=== PATIENT | female | born 1950 | race Caucasian/White ===

== ENCOUNTER 2021-07-08 10:53 | Outpatient (REF) | payer MEDICARE, SELFPAY ==
--- NOTE | ~2021-07-08 | MM_ITS ---
EXAMINATION: MM SCREENING DIGITAL BREAST TOMOSYNTHESIS, BILATERAL CLINICAL INFORMATION: Screening. Asymptomatic. History ADH 3:00 anterior left breast, post excision 06/22/2017. The lifetime risk of breast cancer based on the Tyrer-Cuzick Model is 19%. COMPARISON: Mammography: 07/02/2020, 03/17/2019, 03/18/2018; outside mammography 04/03/2017 ([facility]); MRI breasts 05/31/2020. TECHNIQUE: Digital breast tomosynthesis is performed in both the craniocaudal and mediolateral oblique views along with computer-aided detection (CAD). Synthesized 2D images are generated from the tomosynthesis. Additional exaggerated left CC view is provided. FINDINGS: There are scattered areas of fibroglandular density (ACR BI-RADS breast composition Category b). There are post lumpectomy changes again noted left breast anterior outer quadrant. Neither breast shows interval mass or architectural abnormality. Again, there are scattered bilateral round and punctate calcifications. No significant changes. There is a dermal lesion overlying the lower left breast. MM/MM tomosynthesis screening BI IMPRESSION: No mammographic evidence of malignancy. Stable post lumpectomy changes left breast. ASSESSMENT: BI-RADS 2: Benign RECOMMENDATION: Routine annual mammography screening. This patient's information was entered into a reminder system with a target due date for their next mammogram.
== END 2021-07-08 10:54 | disposition home or self-care (01) ==
LOC: HO.MAMMO 10:53
PROVIDERS: PCP Internal Medicine; Visit Provider Internal Medicine
DX: Z12.31 Encounter for screening mammogram for malignant neoplasm of breast (principal)
CPT/HCPCS: 77063; 77067

== ENCOUNTER → 2021-08-06 08:32 | Outpatient (BNVA) | payer MEDICARE, SELFPAY | PROVIDERS: PCP Internal Medicine; Visit Provider Surgery | DX: N60.92 Unspecified benign mammary dysplasia of left breast (principal) | CPT/HCPCS: 99212 ==

== ENCOUNTER 2022-07-21 08:35 | Outpatient (REF) | payer MEDICARE, SELFPAY ==
--- NOTE | ~2022-07-21 | MM_ITS ---
EXAMINATION: MM SCREENING DIGITAL BREAST TOMOSYNTHESIS, BILATERAL CLINICAL INFORMATION: Screening. Asymptomatic. The lifetime risk of breast cancer based on the Tyrer-Cuzick Model is 18%. COMPARISON: Mammography: 07/08/2021, 07/02/2020, 03/17/2019 TECHNIQUE: Digital breast tomosynthesis is performed in both the craniocaudal and mediolateral oblique views along with computer-aided detection (CAD). Synthesized 2D images are generated from the tomosynthesis. FINDINGS: There are scattered areas of fibroglandular density (ACR BI-RADS breast composition Category b). There are no significant masses, abnormal calcifications, or other abnormalities. . Parenchymal pattern is similar to prior exam. There are scattered benign round and some coarse calcifications. The axilla are unremarkable. There is a dermal lesion again seen overlying the lower left breast. MM/MM tomosynthesis screening BI IMPRESSION: No mammographic evidence of malignancy. ASSESSMENT: BI-RADS 2: Benign RECOMMENDATION: Routine annual mammography screening. This patient's information was entered into a reminder system with a target due date for their next mammogram.
== END 2022-07-21 08:36 | disposition home or self-care (01) ==
LOC: HO.MAMMO 08:35
PROVIDERS: Absent Provider Obstetrics & Gynecology Gynecology; PCP Internal Medicine; Visit Provider Internal Medicine
DX: Z12.31 Encounter for screening mammogram for malignant neoplasm of breast (principal)
CPT/HCPCS: 77063; 77067

== ENCOUNTER → 2022-07-29 08:59 | Outpatient (BNVA) | payer MEDICARE, SELFPAY | PROVIDERS: PCP Internal Medicine; Visit Provider Surgery | DX: N60.92 Unspecified benign mammary dysplasia of left breast (principal) | CPT/HCPCS: 99212 ==

== ENCOUNTER 2023-07-28 08:43 | Outpatient (REF) | payer MEDICARE, SELFPAY ==
--- NOTE | ~2023-07-28 | MM_ITS ---
EXAMINATION: MM SCREENING DIGITAL BREAST TOMOSYNTHESIS, BILATERAL CLINICAL INFORMATION: Screening. Asymptomatic. The patient has a history of left breast excision for atypical ductal head lesion. COMPARISON: Mammography: This study is compared with prior exams dating back to 2019. TECHNIQUE: Digital breast tomosynthesis is performed in both the craniocaudal and mediolateral oblique views along with computer-aided detection (CAD). Synthesized 2D images are generated from the tomosynthesis. FINDINGS: There are scattered areas of fibroglandular density (ACR BI-RADS breast composition Category b). There are no significant masses, abnormal calcifications, or other abnormalities. There are postsurgical changes in the lateral aspect of the left breast from prior excision of atypical ductal hyperplasia. MM/MM tomosynthesis screening BI IMPRESSION: No mammographic evidence of malignancy. ASSESSMENT: BI-RADS BI-RADS 2 - Benign Findings RECOMMENDATION: Routine annual mammography screening. 1 year F/U This examination should not preclude the clinical evaluation of a suspicious palpable abnormality. This patient's information was entered into a reminder system with a target due date for their next mammogram.
== END 2023-07-28 08:44 | disposition home or self-care (01) ==
LOC: HO.MAMMO 08:43
PROVIDERS: PCP Internal Medicine; Visit Provider Internal Medicine
DX: Z12.31 Encounter for screening mammogram for malignant neoplasm of breast (principal)
CPT/HCPCS: 77063; 77067

== ENCOUNTER → 2023-07-28 08:45 | Outpatient (BNV) | payer MEDICARE, SELFPAY | PROVIDERS: PCP Internal Medicine; Visit Provider Radiology Diagnostic Radiology | DX: Z12.31 Encounter for screening mammogram for malignant neoplasm of breast (principal) | CPT/HCPCS: 77063; 77067 ==

== ENCOUNTER 2023-08-04 08:49 | Outpatient (AMB) | payer MEDICARE, SELFPAY ==
--- NOTE | 2023-08-04 08:51 | MHC.OFFVIS ---
Intake Vital Signs 08/04/23 09:05 Height 5 ft 3.5 in Weight 181 lb BMI 31.6 BP 130/70 Blood Pressure Location Lt brachial Position Sitting Intake Visit Reasons: Yearly Breast Exam Intake Note: Patient is seen in office for yearly breast exam. Patient c/o: denies any concerns regarding the breast Deputy Sheriff Lieutenant Required: No Certified Alcohol And Drug Counselor: Certified Alcohol And Drug Counselor Present Accompanied by: Spouse Allergies sulfamethoxazole [From BACTRIM] Allergy (Unknown, Unverified 08/04/23 09:02) RASH,COUGH trimethoprim [From BACTRIM] Allergy (Unknown, Unverified 08/04/23 09:02) RASH,COUGH SULFA Allergy (Unknown, Uncoded 08/04/23 09:02) hives HPI HPI Comments History of Present Illness Details 73 year old female patient of Kayli Connolly and previous patient of Dr. Gutierrez presenting for a follow up breast examination. She was diagnosed with a left breast atypical ductal hyperplasia in the 1 o'clock position in 2016 and subsequently underwent left needle localization biopsy which confirmed atypical ductal hyperplasia. Patient had a 40% lifetime risk of breast cancer. She was placed in the high risk breast cancer protocol for which twice yearly breast examinations, yearly mammograms followed in 6 months with MRI of the breast was recommended. Since her last visit, she denies any new breast symptoms or new palpable lumps on self examination. A breast MRI performed on 06/04/2020 revealed benign changes in both breasts (BI-RADS 2). This study was delayed due to the COVID-19 pandemic. Mammogram of 07/28/2023 revealed no mammographic evidence of malignancy (BI-RADS 2). She returns for a 1 year follow-up examination. She denies any new changes in the breast, and new palpable mass, skin changes or other suspicious findings. She is interested in repeating the MRI when she returns in March 2024. Reports her brother from cardiac disease while playing basketball. Her was diagnosed with prostate cancer metastatic to the spine. He underwent radiation to the spine and tolerated this well. She reports undergoing a right knee total knee replacement on 07/27/2022. This subsequently got infected and required 2 additional surgeries and a prolonged course of antibiotics. She is nearly finished with her physical therapy and generally feels much improved. [facility] Surgical History History of total right knee replacement (TKR) (06/25/22) History of total right knee replacement History of cataract surgery (07/09/20) History of lumpectomy of left breast (06/22/17) History of left breast biopsy History of left knee replacement (2017) Family History Maternal Grandfather Leukemia, Onset Age: 85 Paternal Aunt Breast cancer, Onset Age: 65 Maternal Uncle Lung cancer, Onset Age: 54 Family/Other Breast cancer Social History Alcohol intake: current Alcohol intake frequency: holidays/special occasions only Patient Tobacco Use Status: Never used Tobacco Review of Systems Const All systems reviewed & are unremarkable except as noted in HPI and below Denies anorexia, Denies chills, Denies fever(s) and Denies night sweats Card Denies chest pain, Denies rapid heart rate, Denies irregular heart rhythm and Denies dyspnea Resp Denies cough, Denies dyspnea and Denies stridor GI Denies bloating, Denies constipation, Denies GI cramping and Denies diarrhea Denies nipple discharge Musc Details: Right knee replacement Reports no additional complaints Skin/Breast Denies breast swelling, Denies breast skin changes, Denies breast pain, Denies breast mass, Denies change in breast shape and Denies nipple discharge Physical Exam Vital Signs: Last Vital Signs BP 130/70 08/04/23 09:05 BMI result Body Mass Index 31.6 Const General: cooperative, no acute distress and well developed Nutritional Appearance: well nourished Orientation/consciousness: patient oriented x3 Limitations: no limitations Neck Neck: Yes no lymphadenopathy, Yes trachea midline and Yes supple Chest Other: Left breast: No skin change, no nipple retraction, no nipple discharge, no palpable mass, no enlarged lymph nodes. Right breast: No skin change, no nipple retraction, no nipple discharge, no palpable mass, no enlarged lymph nodes Resp Effort & Inspection: normal respiratory effort, no cough and no respiratory distress Auscultation: no rhonchi GI Inspection: Yes normal to inspection Skin Other: Warm, dry, no rashes Neuro General: patient oriented x3 Extrem General: Yes no clubbing, cyanosis or edema Assessment & Plan Assessment & Plan (1) Atypical ductal hyperplasia of left breast: Code(s): N60.92 - Unspecified benign mammary dysplasia of left breast Plan: Patient returns for follow-up yearly breast examination following excision of an atypical ductal hyperplasia of the left breast. She denies any new breast symptoms on either side. Her most recent mammogram of 07/28/2023 revealed no mammographic evidence of malignancy (BI-RADS 2). Examination today revealed no suspicious findings in either side. She should continue self examination and return in 1 year for follow-up examination. A breast MRI is been ordered for March 2024. She is welcome to call for any concerns. Orders: Orders MR breast BI wo/w con 03/09/24 N60.92 - Unspecified benign mammary dysplasia of left breast Coding Level of Care Code Est Pt Level 3 (71873) Diagnoses Atypical ductal hyperplasia of left breast N60.92
[2023-08-04 09:05] VITALS: BP 130/70; BMI 31.6
== END 2023-08-04 09:22 | disposition home or self-care (01) ==
PROVIDERS: PCP Internal Medicine; Visit Provider Surgery
DX: N60.92 Unspecified benign mammary dysplasia of left breast (principal)
CPT/HCPCS: 99213

== ENCOUNTER → 2023-08-04 08:49 | Outpatient (BNVA) | payer MEDICARE, SELFPAY | PROVIDERS: PCP Internal Medicine; Visit Provider Surgery | DX: N60.92 Unspecified benign mammary dysplasia of left breast (principal) | CPT/HCPCS: 99212 ==

== ENCOUNTER 2024-03-29 14:00 | Outpatient (REF) | payer MEDICARE, SELFPAY ==
--- NOTE | ~2024-03-29 | MR_ITS ---
EXAMINATION: MR BREAST WITHOUT AND WITH CONTRAST, BILATERAL CLINICAL INFORMATION: High-risk screening. History of left ADH status post excision. COMPARISON: 05/31/2020, 04/07/2019 TECHNIQUE: Imaging was performed with a dedicated breast coil. Prior to the administration of contrast, bilateral axial T1 and bilateral axial T2 weighted sequences were obtained. After the uneventful administration of?8.5 mL of Gadavist, dynamic contrast-enhanced VIBRANT series through the breasts in the axial plane were performed. Subtracted images were performed and reviewed. A delayed sagittal sequence through both breasts was acquired. Additionally, CAD post-processing, including maximum intensity projections, 3-D reconstructions and kinetic analysis, were performed an independent workstation and reviewed by the interpreting radiologist is a portion of this exam. FINDINGS: There are scattered areas of fibroglandular density. The patient's fibroglandular tissue demonstrates mild background enhancement. LEFT BREAST: Stable linear non mass enhancement in the lateral left breast measuring 6 mm (image 64/101 series 100), given greater than 2 year stability this is favored benign. Stable postsurgical changes in the lateral left breast. No new suspicious masslike or non-masslike enhancement. No abnormal skin thickening or nipple retraction. Review of the T2 weighted images and kinetic images reveals no additional findings. RIGHT BREAST: Stable enhancing focus measuring 5 mm in the right breast at 12:00 2.4 cm from the nipple (image 71/101 series 100), given greater than 2 year stability this is favored benign. No new suspicious masslike or non-masslike enhancement. No abnormal skin thickening or nipple retraction. Review of the T2 weighted images and kinetic images reveals no additional findings. There is no suspicious internal mammary chain or axillary adenopathy. Limited views of the chest and abdomen are unremarkable. MR/MR breast BI wo/w con IMPRESSION: No MR specific evidence of malignancy. ASSESSMENT: LEFT BREAST: BI-RADS 2-benign findings RIGHT BREAST: BI-RADS 2-benign findings RECOMMENDATIONS: Continue annual screening mammography. Annual screening MRI can be considered if risk factors indicate.
[2024-03-29] MEDS: gadobutroL 10 ML VIAL IVPUSH (15:42)
== END 2024-03-29 14:01 | disposition home or self-care (01) ==
LOC: HO.MRI 14:00
PROVIDERS: PCP Internal Medicine; Visit Provider Surgery
DX: N60.92 Unspecified benign mammary dysplasia of left breast (principal)
CPT/HCPCS: 77049; A9585

== ENCOUNTER 2024-09-23 08:59 | Outpatient (REF) | payer MEDICARE, SELFPAY ==
--- NOTE | ~2024-09-23 | MM_ITS ---
EXAMINATION: MM SCREENING DIGITAL BREAST TOMOSYNTHESIS, BILATERAL CLINICAL INFORMATION: Screening. Asymptomatic. COMPARISON: Mammography: Comparison is made with available priors TECHNIQUE: Digital breast mammography with tomosynthesis is performed in both the craniocaudal and mediolateral oblique views along with computer-aided detection (CAD). FINDINGS: There are scattered areas of fibroglandular density (ACR BI-RADS breast composition Category b). Left excisional biopsy. There are no significant masses, abnormal calcifications, or other abnormalities. MM/MM tomosynthesis screening BI IMPRESSION: No mammographic evidence of malignancy. ASSESSMENT: BI-RADS BI-RADS 2 - Benign Findings RECOMMENDATION: Routine annual mammography screening. 1 year F/U This examination should not preclude the clinical evaluation of a suspicious palpable abnormality. This patient's information was entered into a reminder system with a target due date for their next mammogram. Electronically signed by: Luci Manning DO 09/29/2024 06:06 PM [facility]
== END 2024-09-23 09:00 | disposition home or self-care (01) ==
LOC: HO.MAMMO 08:59
PROVIDERS: PCP Internal Medicine; Visit Provider Surgery
DX: Z12.31 Encounter for screening mammogram for malignant neoplasm of breast (principal)
CPT/HCPCS: 77063; 77067

== ENCOUNTER → 2024-09-23 09:15 | Outpatient (BNV) | payer MEDICARE, SELFPAY | PROVIDERS: PCP Internal Medicine; Visit Provider Internal Medicine | DX: Z12.31 Encounter for screening mammogram for malignant neoplasm of breast (principal) | CPT/HCPCS: 77063; 77067 ==

== ENCOUNTER 2024-09-30 08:53 | Outpatient (AMB) | payer MEDICARE, SELFPAY ==
--- NOTE | 2024-09-30 09:05 | MHC.OFFVIS ---
Vital Signs 09/30/24 09:16 Height 5 ft 3.5 in Weight 187 lb 6 oz BMI 32.7 BP 137/64 Blood Pressure Location Lt brachial Position Sitting Pulse 75 Intake Visit Reasons: Yearly breast exam Intake Note: Patient is seen in office for yearly breast exam. Pt c/o: denies any concerns regarding the breast MRI: 03/29/24 mm: 09/23/24 Glass Washer And Carrier Required: No Sock Lining Stitcher: Sock Lining Stitcher Present Accompanied by: Family/Other Allergies sulfamethoxazole [From BACTRIM] Allergy (Unknown, Unverified 09/30/24 09:17) RASH,COUGH trimethoprim [From BACTRIM] Allergy (Unknown, Unverified 09/30/24 09:17) RASH,COUGH SULFA Allergy (Unknown, Uncoded 09/30/24 09:17) hives Medication List - Last Reconciled 09/30/24 by Blayne Gudino MD amlodipine mg PO aspirin (Adult Low Dose Aspirin) 81 mg PO DAILY atorvastatin 20 mg PO DAILY cholecalciferol (vitamin D3) 50 mcg PO DAILY hydrochlorothiazide 12.5 mg PO DAILY losartan 50 mg PO DAILY magnesium 250 mg PO DAILY HPI Comments Details: 74 year old female patient of Kayli Connolly and previous patient of Dr. Gutierrez presenting for a follow up breast examination. She was diagnosed with a left breast atypical ductal hyperplasia in the 1 o'clock position in 2016 and subsequently underwent left needle localization biopsy which confirmed atypical ductal hyperplasia. Patient had a 40% lifetime risk of breast cancer. She was placed in the high risk breast cancer protocol for which twice yearly breast examinations, yearly mammograms followed in 6 months with MRI of the breast was recommended. Since her last visit, she denies any new breast symptoms or new palpable lumps on self examination. breast MRI performed on 03/29/2024 revealed no MR specific evidence of malignancy (BI-RADS 2 bilaterally). Bilateral mammogram performed on 09/23/2024 revealed no mammographic evidence of malignancy (BI-RADS 2). Reports her brother from cardiac disease while playing basketball. Her was diagnosed with prostate cancer metastatic to the spine. He underwent radiation to the spine and tolerated this well. She reports undergoing a right knee total knee replacement on 07/27/2022. This subsequently got infected and required 2 additional surgeries and a prolonged course of antibiotics. [facility] Surgical History History of total right knee replacement (TKR) (06/25/22) History of total right knee replacement History of cataract surgery (07/09/20) History of lumpectomy of left breast (06/22/17) History of left breast biopsy History of left knee replacement (2017) Family History Maternal Grandfather Leukemia, Onset Age: 85 Paternal Aunt Breast cancer, Onset Age: 65 Maternal Uncle Lung cancer, Onset Age: 54 Family/Other Breast cancer Social History Alcohol intake: current Alcohol intake frequency: holidays/special occasions only Patient Tobacco Use Status: Never used Tobacco Review of Systems Const All systems reviewed & are unremarkable except as noted in HPI and below Denies anorexia, Denies chills, Denies fever(s) and Denies night sweats Card Denies chest pain, Denies rapid heart rate, Denies irregular heart rhythm and Denies dyspnea Resp Denies cough, Denies dyspnea and Denies stridor GI Denies bloating, Denies constipation, Denies GI cramping and Denies diarrhea Denies nipple discharge Musc Details: Right knee replacement Reports no additional complaints Skin/Breast Denies breast swelling, Denies breast skin changes, Denies breast pain, Denies breast mass, Denies change in breast shape and Denies nipple discharge Physical Exam Vital Signs: Last Vital Signs Pulse 75 09/30/24 09:16 BP 137/64 09/30/24 09:16 BMI result Body Mass Index 32.7 Const General: cooperative, no acute distress and well developed Nutritional Appearance: well nourished Orientation/consciousness: patient oriented x3 Limitations: no limitations Chest Other: Left breast: No skin change, no nipple retraction, no nipple discharge, no palpable mass, no enlarged lymph nodes. Right breast: No skin change, no nipple retraction, no nipple discharge, no palpable mass, no enlarged lymph nodes Resp Effort & Inspection: normal respiratory effort, no cough and no respiratory distress GI Inspection: Yes normal to inspection Skin Other: Warm, dry, no rashes Neuro General: patient oriented x3 Extrem General: Yes no clubbing, cyanosis or edema Assessment & Plan Assessment & Plan (1) Atypical ductal hyperplasia of left breast: Code(s): N60.92 - Unspecified benign mammary dysplasia of left breast Category: Medical Plan: Patient returns for follow-up yearly breast examination following excision of an atypical ductal hyperplasia of the left breast. She denies any new breast symptoms on either side. Her most recent mammogram of 09/23/2024 revealed no mammographic evidence of malignancy (BI-RADS 2). Breast MRI of 03/29/2024 revealed no MR specific evidence of malignancy ( BI-RADS 2 bilaterally ). Examination today revealed no suspicious findings in either side. She should continue self examination and return in 1 year for follow-up examination. She is welcome to call for any concerns. Coding Level of Care Code Est Pt Level 3 (24266) Diagnoses Atypical ductal hyperplasia of left breast N60.92
[2024-09-30 09:16] VITALS: BP 137/64; PULSE 75; BMI 32.7
== END 2024-09-30 09:40 | disposition home or self-care (01) ==
PROVIDERS: PCP Internal Medicine; Visit Provider Surgery
DX: N60.92 Unspecified benign mammary dysplasia of left breast (principal)
CPT/HCPCS: 99213

== ENCOUNTER → 2024-09-30 08:53 | Outpatient (BNVA) | payer MEDICARE, SELFPAY | PROVIDERS: PCP Internal Medicine; Visit Provider Surgery | DX: N60.92 Unspecified benign mammary dysplasia of left breast (principal) | CPT/HCPCS: 99212 ==

== ENCOUNTER 2025-09-29 08:33 | Outpatient (REF) | payer MEDICARE, SELFPAY ==
--- NOTE | ~2025-09-29 | MM_ITS ---
EXAMINATION: MM SCREENING DIGITAL BREAST TOMOSYNTHESIS, BILATERAL CLINICAL INFORMATION: Screening. Asymptomatic. COMPARISON: Mammography: Comparison is made with available priors TECHNIQUE: Digital breast mammography with tomosynthesis is performed in both the craniocaudal and mediolateral oblique views along with computer-aided detection (CAD). FINDINGS: There are scattered areas of fibroglandular density. Left excisional biopsy. There are no significant masses, abnormal calcifications, or other abnormalities. MM/MM tomosynthesis screening BI IMPRESSION: No mammographic evidence of malignancy. ASSESSMENT: BI-RADS Category 2: Benign RECOMMENDATION: Routine annual mammography screening. 1 year F/U This examination should not preclude the clinical evaluation of a suspicious palpable abnormality. This patient's information was entered into a reminder system with a target due date for their next mammogram. Electronically signed by: Luci Manning DO 10/02/2025 05:42 PM [facility]
--- OUTSIDE RECORDS SUMMARY | 2025-09-29 08:37 | XMS_ITS | Clinical Summary ---
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 3 Active amLODIPine (NORVASC) 5 mg tablet Take 1.5 tablets (7.5 mg total) by mouth 1 (one) time each day. Active amoxicillin (AMOXIL) 500 mg capsule Take 4 capsules (2,000 mg total) by mouth once as needed for up to 1 dose. Take 1 hour prior to dental procedures. 3 Active aspirin 81 mg EC tablet Take 1 tablet (81 mg total) by mouth 2 (two) times a day after meals. 3 Active atorvastatin (LIPITOR) 10 mg tablet Take 1 tablet (10 mg total) by mouth every evening. Active fluocinolone 0.01 % cream Apply 1 application topically every 3 (three) days. Active hydroCHLOROthia zide (HYDRODIURIL) 25 mg tablet Take 1 tablet (25 mg total) by mouth 1 (one) time each day. Active losartan (COZAAR) 100 mg tablet Take 1 tablet (100 mg total) by mouth every evening. 1 Active MAGNESIUM ORAL Take 1 tablet by mouth every evening. Active meloxicam (MOBIC) 15 mg tablet Take 1 tablet (15 mg total) by mouth 1 (one) time each day. 3 Active methocarbamoL (ROBAXIN) 750 mg tablet Take 1 tablet (750 mg total) by mouth every 6 (six) hours as needed (spasm). 3 Active DAILY MULTI-VITAMIN ORAL Take by mouth every evening. Active nystatin (MYCOSTATIN) 100,000 unit/mL suspension Take 5 mL (500,000 Units total) by mouth 3 (three) times a day. 3 Active ondansetron (ZOFRAN) 4 mg tablet Take 1 tablet (4 mg total) by mouth daily as needed for nausea. 3 Active oxyCODONE (ROXICODONE) 5 mg immediate release tablet Take 1 tablet (5 mg total) by mouth every 4 (four) hours as needed. 3 Active psyllium (Daily Fiber, psyllium-aspart ,) 3.4 gram packet Take 1 packet by mouth 1 (one) time each day. Active senna-docusate (PERICOLACE) 8.6-50 mg per tablet Take 1 tablet by mouth 2 (two) times a day. 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 Acute pain of right knee 09/29/2022 Prediabetes 04/08/2017 Obesity (BMI 30-39.9) 04/08/2017 Encounters Date Type Department Care Team Description 08/10/2025 Telephone [facility] Cardiology [facility] [address] [place] [address] Del Blackburn MD 07/20/2025 Telephone [facility] Cardiology [facility] [address] [place] [address] Fernie Ribeiro MD from Last 3 Months Immunizations Immunization Administration Dates Next Due [employer] SARS-CoV-2 COVID-19, mRNA, LNP-S, preservative free 08/08/2021,01/28/2021,01/03/2021 Surgical History Surgery Date Site/Laterality Comments GUM SURGERY PROCEDURE:GUM SURGERY COLONOSCOPY PROCEDURE:COLONOSCOPY JOINT REPLACEMENT PROCEDURE:JOINT REPLACEMENT TOTAL KNEE ARTHROPLASTY 04/23/2017 Left PROCEDURE:TOTAL KNEE ARTHROPLASTY;COMMENT:Procedu re: REPLACEMENT TOTAL KNEE; Surgeon: Marin Soto MD; Location: [facility]; Service: Orthopedics; Laterality: Left; BREAST LUMPECTOMY 06/2017 Left PROCEDURE:BREAST LUMPECTOMY CATARACT EXTRACTION W/ INTRAOCULAR LENS IMPLANT 2019 Left PROCEDURE:CATARACT EXTRACTION W/ INTRAOCULAR LENS IMPLANT CATARACT EXTRACTION W/ INTRAOCULAR LENS IMPLANT 2019 Right PROCEDURE:CATARACT EXTRACTION W/ INTRAOCULAR LENS IMPLANT TOTAL KNEE ARTHROPLASTY 06/26/2022 Right PROCEDURE:TOTAL KNEE ARTHROPLASTY;COMMENT:Procedu re: REPLACEMENT TOTAL KNEE; Surgeon: Marin Soto MD; Location: [facility]; Service: Orthopedics; Laterality: Right; REMOVAL PROSTHESIS TOTAL KNE E W/ OR W/O INSERTION SPACER 10/21/2022 Right PROCEDURE:REMOVAL PROSTHESIS TOTAL KNEE W/ OR W/O INSERTION SPACER;COMMENT:Procedure: REMOVE TOTAL KNEE PROSTHESIS; Surgeon: Inder Cordero MD; Location: [facility]; Service: Orthopedic Trauma; Laterality: Right; KNEE ARTHRODESIS 10/21/2022 Right PROCEDURE:KNEE ARTHRODESIS;COMMENT:Procedur e: ARTHRODESIS KNEE; Surgeon: Inder Cordero MD; Location: [facility]); Service: Orthopedic Trauma; Laterality: Right; PERIPHERALLY INSERTED CENTRA L CATHETER INSERTION 10/22/2022 PROCEDURE:PERIPHERALLY INSERTED CENTRAL CATHETER INSERTION KNEE ARTHROPLASTY 12/16/2022 Right PROCEDURE:REVISION TOTAL KNEE ARTHROPLASTY;COMMENT:Procedu re: REVISION TOTAL KNEE; Surgeon: Inder Cordero MD; Location: [facility]); Service: Orthopedics; Laterality: Right; Medical History Medical History Date Comments Osteoarthritis DX:Osteoarthriti s Lichen planus DX:Lichen planus ;COMMENT:not active Gingivitis DX:Gingivitis Pneumonia DX:Pneumonia Hypertension DX:Hypertension Hyperlipidemia DX:Hyperlipidemi a Migraine headache DX:Migraine he adache;COMMENT:Hx last 40 yrs ago Prediabetes DX:Prediabetes Obesity (BMI 35.0-39.9 witho ut comorbidity) DX:Obesity (BMI 35.0-39.9 wi thout comorbidity) Lab test positive for detect ion of COVID-19 virus 05/02/2022 DX:Lab test positive for det ection of COVID-19 virus;COMMENT:Pt states Mild case Cataract DX:Cataract;COMM ENT:2020 surgery bilaterally Visual impairment DX:Visual impairment;COMMENT:reading glasses History of transfusion 10/25/2022 DX:Histor y of transfusion Anemia DX:Anemia Staph infection DX:Staph infecti on;COMMENT:R-TKA 10/2022. On IV ABX Family History Medical History Relation Name Comments Heart disease Brother Heart attack, CABG 4 Hyperlipidemia Brother Heart disease Father 75 Arthritis Mother Hyperlipidemia Mother Hypertension Mother No Known Problems Sister Relation Name Status Comments Brother (Age 67) [place] Father 75 Heart attack Mother Alive Sister Alive Social History Tobacco Use Types Packs/Day Years Used Date Smoking Tobacco: Never Smokeless Tobacco: Never Alcohol Use Standard Drinks/Week Comments Yes 0 (1 standard drink = 0.6 oz pur e alcohol) Comments Unknown Sex and Gender Information Value Date Recorded Sex Assigned at Not on file Legal Sex Female 5:13 AM EST Gender Identity Not on file Sexual Orientation Not on file Obstetrics History Last Filed Vital Signs Vital Sign Reading Time Taken Comments Blood Pressure 138/65 03/14/2025 10:07 AM EDT Pulse 67 03/14/2025 10:07 AM EDT Temperature 36.7 C (98 F) 03/14/2025 10:07 AM EDT Respiratory Rate - - Oxygen Saturation - - Inhaled Oxygen Concentration - - Weight 78.9 kg (174 lb) 03/14/2025 10:07 AM EDT Height 162.6 cm (5' 4 ) 03/14/2025 10:07 AM EDT Body Mass Index 29.87 03/14/2025 10:07 AM EDT Plan of Treatment Upcoming Encounters Date Type Department Care Team (Late st Contact Info) Description 03/13/2026 11:00 AM EDT Office Visit Orthopedic Oncology - [place] [address] [place] [id number] Jase Rivera MD [address] [place], [place] [id number] Health Maintenance Due Date Last Done Comments Breast Cancer Screening 1950 Colorectal Cancer Screening: Colonoscopy 1950 Cholesterol Screening (Lipid Panel) 10/12/2022 Falls Risk Assessment 10/12/2022 Hepatitis C Screening 10/12/2022 Medicare Annual Wellness Visit 10/12/2022 Social Influencers of Health Screening 10/12/2022 Depression Screening 11/09/2024 COVID-19 Vaccine ( season) 2025 10/21/2024, 06/01/2024, 08/04/2023, Additional history exists Influenza Vaccine (#1) 2025 , 09/04/2022, 07/23/2021, Additional history exists Hypertension/CHF/CAD Annual BMP Blood Test 10/28/2025 10/28/2024, 12/18/2022, 12/18/2022, Additional history exists DTaP,Tdap,and Td Vaccines (2 - Td or Tdap) 10/05/2028 10/05/2018 Osteoporosis Screening (Bone Density Screening) 06/28/2035 06/28/2025, 04/21/2022, 04/19/2020, Additional history exists Zoster Vaccines Completed 05/17/2021, 10/10, 08/22/2017, Additional history exists RSV Immunization Adult Patients Completed 10/09/2023 Pneumococcal Vaccine: 50+ Years Completed 06/01/2024, 03/28/2020, 10/14/2016 HIB Vaccines Aged Out No longer eligi ble based on patient's age to complete this topic HPV Vaccines Aged Out No longer eligi ble based on patient's age to complete this topic Hepatitis A Vaccines Aged Out No long er eligible based on patient's age to complete this topic Hepatitis B Vaccines Aged Out No long er eligible based on patient's age to complete this topic IPV Vaccines Aged Out No longer eligi ble based on patient's age to complete this topic MMR Vaccines Aged Out No longer eligi ble based on patient's age to complete this topic Meningococcal ACWY Vaccine Aged Out N o longer eligible based on patient's age to complete this topic Meningococcal B Vaccine Aged Out No l onger eligible based on patient's age to complete this topic RSV Immunization Patients Under 20 months Aged Out No longer eligible based on patient's age to complete this topic Varicella Vaccines Aged Out No longer eligible based on patient's age to complete this topic Medical Devices Implanted Type Area Geopolitics Teacher Device Identifier Shelf Expiration Date Model / Serial / Lot Stimulan Rapid Cure Implanted:Qty : 1 on 10/21/2022 Joints Right: Knee [id number] 05/08/2025 / / [id number] [employer] Simplex Radiopq Stry-Howm 7836-8-190-11 409 Implanted:Qty : 1 on 10/21/2022 Right: Knee [employer] [id number] 10/08/2023 6190-11-09 0 / / [id number] Cement Bone Surg Simplex Radiopq Stry-Howm 9074-7-962-11 409 Implanted:Qty : 1 on 10/21/2022 Right: Knee [employer] [id number] 10/08/2023 6190-11-09 0 / / [id number] Cement Bone Surg Simplex Radiopq Stry-Howm 8618-9-689-11 409 Implanted:Qty : 1 on 10/21/2022 Right: Knee [employer] [id number] 10/08/2023 6190-11-09 0 / / [id number] Cement Bone Surg Simplex Radiopq Stry-Howm 1202-6-444-11 409 Implanted:Qty : 1 on 10/21/2022 Right: Knee [employer] [id number] 10/08/2023 6190-11-09 0 / / [id number] Cement Bone Surg Simplex Radiopq Stry-Howm 2089-5-533-11 409 Implanted:Qty : 1 on 10/21/2022 Right: Knee [employer] [id number] 10/08/2023 6190-11-09 0 / / [id number] Knee Fem Ts Sz4 Rt Stry-Howm 1584-E-026-53 6008 Implanted:Qty : 1 on 12/16/2022 by Inder Cordero MD Right: Knee [employer] [id number] 07/28/2026 5512-F-40 2 / / [id number] Knee Fem Dist Aug Sz4 10mm Rt Stry-Howm 9318-Y-560-55 0809 Implanted:Qty : 1 on 12/16/2022 by Inder Cordero MD Right: Knee [employer] [id number] 09/23/2025 5541-A-40 2 / / [id number] Knee Aug Fem Dist Rt 5mm Sz4 Stry-Howm 2522-U-614-53 4021 Implanted:Qty : 1 on 12/16/2022 by Inder Cordero MD Right: Knee [employer] [id number] 04/07/2023 5540-A-40 2 / / [id number] Knee Aug Fem Post 5mm Sz4 Stry-Howm 8264-K-290-53 4020 Implanted:Qty : 1 on 12/16/2022 by Inder Cordero MD Right: Knee [employer] [id number] 06/03/2026 5543-A-40 0 / / [id number] Knee Aug Fem Post 5mm Sz4 Stry-Howm 0018-R-408-53 4020 Implanted:Qty : 1 on 12/16/2022 by Inder Cordero MD Right: Knee [employer] [id number] 05/20/2026 5543-A-40 0 / / [id number] Knee Stem Cmnt Triathln 90x767 Stry-How 9015-X-382-20 0861 Implanted:Qty : 1 on 12/16/2022 by Inder Cordero MD Right: Knee [employer] [id number] 06/26/2024 5565-S-01 7 / / [id number] Knee Sys Total Ofst 2mm Stry-How 7677-S-927-56 5395 Implanted:Qty : 1 on 12/16/2022 by Inder Cordero MD Right: Knee [employer] [id number] 03/26/2024 5570-S-02 0 / / [id number] Knee Adapt Stab Offset 4mm Stry-Howm 0768-A-930-53 5890 Implanted:Qty : 1 on 12/16/2022 by Inder Cordero MD Right: Knee [employer] [id number] 10/21/2025 5570-S-04 0 / / [id number] Knee Tib Baseplate Sz 4 Rt-Lt Stry-Howm 5840-Z-822-54 5913 Implanted:Qty : 1 on 12/16/2022 by Inder Cordero MD Right: Knee [employer] [id number] 04/03/2027 5521-B-40 0 / / [id number] Knee Tib Aug Rm Ll Sz4 10mm Stry-Howm 2092-O-790-54 9114 Implanted:Qty : 1 on 12/16/2022 by Inder Cordero MD Right: Knee [employer] [id number] 12/04/2025 5546-A-40 2 / / [id number] Knee Aug L Rl Sz4 10mm Stry-Howm 8452-W-982-64 6121 Implanted:Qty : 1 on 12/16/2022 by Inder Cordero MD Right: Knee [employer] [id number] 02/05/2026 5546-A-40 1 / / [id number] Knee Stem Fluted 13mm Stry-How 8482-J-478-55 0031 Implanted:Qty : 1 on 12/16/2022 by Inder Cordero MD Right: Knee [employer] [id number] 04/21/2026 5565-S-01 3 / / [id number] Description:[id number] Knee Insrt Tib Ts+ X3 #4 11mm Stry-Howm 8827-H-382-64 8854 Implanted:Qty : 1 on 12/16/2022 by Inder Cordero MD Right: Knee [employer] [id number] 09/26/2026 5537-G-41 1 / / [id number] C[employer] Simplex Radiopq Stry-How 0646-6-072-11 4092 Implanted:Qty : 1 on 12/16/2022 by Inder Cordero MD Right: Knee [employer] [id number] 04/08/2025 6190-11-09 0 / / [id number] C[employer] Bone Surg Simplex Radiopq Stry-How 8904-9-939-11 4092 Implanted:Qty : 1 on 12/16/2022 by Inder Cordero MD Right: Knee [employer] [id number] 04/08/2025 6190-11-09 0 / / [id number] C[employer] Bone Surg Simplex Radiopq Stry-How 1951-0-870-11 409 Implanted:Qty : 1 on 12/16/2022 by Inder Cordero MD Right: Knee [employer] [id number] 04/08/2025 6190-11-09 0 / / [id number] Procedures Procedure Name Priority Date/Time Associated Diagnosis Comments BD BONE DENSITY DXA AXIAL SKELETON Routine 06/28/2025 11:45 AM EDT Postmenopausal COMPREHENSIVE METABOLIC PANEL Routine 10/28/2024 8:53 AM EST HTN (hypertension) 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 FRAX: 10 year probability for major osteoporotic fracture 20.2% and hip fracture 10%. The World Health Organization defines a T-score at or above -1.0 standard deviations as normal, between -1.0 and -2.5 standard deviations as osteopenic, and at or below -2.5 standard deviations as osteoporotic. -------- FINAL REPORT -------- Dictated By: Sarah Banks Dictated Date: 06/29/2025 16:50 ET Assigned Physician: Sarah Banks Reviewed and Electronically Signed By: Sarah Banks Signed Date: 06/29/2025 16:51 ET Workstation ID: [id number] Transcribed By: Self Edit Transcribed Date: 06/29/2025 16:50 ET Narrative 06/29/2025 4:51 PM EDT CLINICAL INDICATION / HISTORY: 75 years Female Postmenopausal TECHNIQUE: Routine DXA scans of the lumbar spine and Left hip are acquired. CAMERA: GE COMPARISON: None FINDINGS: Lumbar Spine L1-L4 bone mineral density is 1.568 gm/cm2, which corresponds with a T-score of 3.0 . Please note sclerosis in L2 and L3 may falsely elevate T score values. Left Hip Neck bone mineral density is 0.784 gm/cm2, which corresponds to a T- score of -1.8 . Left Hip Total bone mineral density is 0.827 gm/cm2, which corresponds to a T- score of -1.4 . Procedure Note Sarah Banks MD - 06/29/2025 CLINICAL INDICATION / HISTORY: 75 years Female Postmenopausal TECHNIQUE: Routine DXA scans of the lumbar spine and Left hip areacquired. CAMERA: GE COMPARISON: None FINDINGS: Lumbar Spine L1-L4 bone mineral density is 1.568 gm/cm2, which correspondswith a T-score of 3.0 . Please note sclerosis in L2 and L3 may falselyelevate T score values. Left Hip Neck bone mineral density is 0.784 gm/cm2, which corresponds to aT- score of -1.8 . Left Hip Total bone mineral density is 0.827 gm/cm2, which corresponds toa T- score of -1.4 . IMPRESSION: Osteopenia. FRAX: 10 year probability for major osteoporotic [id number]% and hip fracture 10%. The World Health Organization defines a T-score at or above -1.0 standarddeviations as normal, between -1.0 and -2.5 standard deviations asosteopenic, and at or below -2.5 standard deviations as osteoporotic. -------- FINAL REPORT -------- Dictated By: Sarah Banks Dictated Date: 06/29/2025 16:50 ET Assigned Physician: Sarah Banks Reviewed and Electronically Signed By: Sarah Banks Signed Date: 06/29/2025 16:51 ET Workstation ID: [id number] Transcribed By: Self Edit Transcribed Date: 06/29/2025 16:50 ET Fernie Ribeiro MD IM DXA PROCEDURES Final Result * Comprehensive metabolic panel (10/28/2024 8:53 AM EST) Sodium 136 133 - 145 mmol/L LAB CHEMISTRY METHOD 10/28/2024 1:16 PM [facility] Potassium 4.0 3.5 - 5.5 mmol/L LAB CHEMISTRY METHOD 10/28/2024 1:16 PM [facility] Chloride 104 96 - 110 mmol/L LAB CHEMISTRY METHOD 10/28/2024 1:16 PM [facility] CO2 26 21 - 32 mmol/L LAB CHEMISTRY METHOD 10/28/2024 1:16 PM [facility] Anion Gap 6 3 - 11 LAB CHEMISTRY METHOD 10/28/2024 1:16 PM [facility] Glucose 96 70 - 100 mg/dL LAB CHEMISTRY METHOD 10/28/2024 1:16 PM [facility] BUN 24 5 - 25 mg/dL LAB CHEMISTRY METHOD 10/28/2024 1:16 PM [facility] Creatinine 0.97 0.50 - 1.10 mg/dL LAB CHEMISTRY METHOD 10/28/2024 1:16 PM [facility] eGFR 62 >=60 mL/min/1. 73m2 LAB CHEMISTRY METHOD 10/28/2024 1:16 PM [facility] Comment:Calculation based on the Chronic Kidney Disease Epidemiology Collaboration (CKD-EPI) equation refit without adjustment for race. BUN/Creatinine Ratio 24.7 LAB CHEMISTRY METHOD 10/28/2024 1:16 PM [facility] Calcium 9.9 8.5 - 10.5 mg/dL LAB CHEMISTRY METHOD 10/28/2024 1:16 PM [facility] AST (SGOT) 10 10 - 42 unit/L LAB CHEMISTRY METHOD 10/28/2024 1:16 PM [facility] ALT (SGPT) 13 10 - 60 unit/L LAB CHEMISTRY METHOD 10/28/2024 1:16 PM [facility] Alkaline Phosphatase 113 42 - 121 unit/L LAB CHEMISTRY METHOD 10/28/2024 1:16 PM [facility] Total Protein 7.4 6.0 - 8.0 g/dL LAB CHEMISTRY METHOD 10/28/2024 1:16 PM [facility] Albumin 4.1 3.2 - 5.0 g/dL LAB CHEMISTRY METHOD 10/28/2024 1:16 PM [facility] Total Bilirubin 0.6 0.0 - 1.4 mg/dL LAB CHEMISTRY METHOD 10/28/2024 1:16 PM [facility] Blood Venous blood specimen / Unknown Venipuncture / Unknown 10/28/2024 8:53 AM EST 10/28/2024 12:30 PM EST Fernie Ribeiro MD LAB BLOOD ORDERABLES Final Resul t [facility] [address] [place] [address], from Last 3 Months or Most Recently Relevant to Health Maintenance Insurance [employer] MEDICARE Advance Directives Documents on File Type Date Recorded Patient Lacing Presser Expl anation Health Care Decision (hx) 12/19/2022 AD MEYER DIRECTIVE Health Care Decision (hx) 10/15/2022 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
--- OUTSIDE RECORDS SUMMARY | 2025-09-29 08:37 | XMS_ITS | Clinical Summary ---
Author Organization [facility] Address [address] [place] [address] Care Team Providers Care Crutch Maker Name Role Phone Fernie Ribeiro MD Primary Care Provider [phone] Allergies Active Allergy Reactions Criticality Noted Date Comments Sulfa Antibiotics Rash Low 06/17/2017 Medications Medication Sig Dispensed Refills Start Date End Date Status atorvastatin (LIPITOR) tablet 10 mg Take 1 tablet (10 mg total) by mouth every evening. 0 Active amLODIPine (NORVASC) tablet 5 mg Take 1.5 tablets (7.5 mg total) by mouth daily. 0 Active hydrochlorothiazid e (HYDRODIURIL) tablet 25 mg Take 1 tablet (25 mg total) by mouth daily. 0 Active fluocinolone (VANOS) 0.01 % cream Apply 1 application topically every 3 (three) days. 0 Active MAGNESIUM PO Take 1 tablet by mouth every evening. 0 Active losartan (COZAAR) 100 MG tablet Take 1 tablet (100 mg total) by mouth every evening. 0 10/17/2021 Active Multiple Vitamin (MULTI VITAMIN DAILY PO) Take by mouth every evening. 0 Active psyllium (METAMUCIL) 58.6 % packet Take 1 packet by mouth daily. 0 Active acetaminophen (TYLENOL EXTRA STRENGTH) 500 MG tablet Take 2 tablets (1,000 mg total) by mouth every 8 (eight) hours. 30 tablet 0 12/18/2022 Active aspirin EC 81 MG EC tablet Take 1 tablet (81 mg total) by mouth 2 (two) times a day after meals. 84 tablet 0 12/18/2022 Active oxyCODONE (ROXICODONE) 5 MG immediate release tablet Take 1 tablet (5 mg total) by mouth every 4 (four) hours as needed. 40 tablet 0 12/18/2022 Active senna-docusate (PERICOLACE) 8.6-50 MG Take 1 tablet by mouth 2 (two) times a day. 20 tablet 0 12/18/2022 Active meloxicam (MOBIC) 15 MG tablet Take 1 tablet (15 mg total) by mouth daily. 30 tablet 1 01/09/2023 Active methocarbamol (ROBAXIN) 750 MG tablet Take 1 tablet (750 mg total) by mouth every 6 (six) hours as needed (spasm). 45 tablet 0 01/14/2023 Active ondansetron (Zofran) 4 MG tablet Take 1 tablet (4 mg total) by mouth daily as needed for nausea. 30 tablet 1 01/14/2023 Active nystatin (MYCOSTATIN) 980890 UNIT/ML suspension Take 5 mL (500,000 Units total) by mouth 3 (three) times a day. 473 mL 1 01/28/2023 Active amoxicillin (AMOXIL) 500 MG capsule Take 4 capsules (2,000 mg total) by mouth once as needed for up to 1 dose. Take 1 hour prior to dental procedures. 16 capsule 0 07/30/2023 Active amoxicillin (AMOXIL) 500 MG capsule Take 4 pills one hour before procedure 12 capsule 1 03/17/2024 Active Active Problems Problem Noted Date Diagnosed Date Prosthetic joint infection, subsequent encounter 10/21/2022 Acute pain of right knee 09/29/2022 History of total bilateral knee replacement 09/10 Visit for wound check 09/18/2022 Encounter for postoperative wound check 08/05/20 22 Prediabetes 04/08/2017 Obesity (BMI 30-39.9) 04/08/2017 Immunizations Name Administration Dates Next Due Covid-19 (Pfizer) Dilution Required 08/08/2021,0 01/28/2021,01/03/2021 Family History Medical History Relation Name Comments Heart disease Brother Heart attack, CABG 4 Hyperlipidemia Brother Heart disease Father 75 Arthritis Mother Hyperlipidemia Mother Hypertension Mother No Sig Med Hx Sister Relation Name Status Comments Brother (Age 67) [place] Father 75 Heart attack Mother Alive Sister Alive Social History Tobacco Use Types Packs/Day Years Used Date Smoking Tobacco: Never Smokeless Tobacco: Never Tobacco Cessation:Counseling Given: Not Answered Alcohol Use Standard Drinks/Week Comments Yes 0 (1 standard drink = 0.6 oz pur e alcohol) 1x month 1 drink Sex and Gender Information Value Date Recorded Sex Assigned at Female 04/16/2020 4:22 PM EDT Gender Identity Female 06/09/2022 3:45 PM EDT Sexual Orientation Straight 12/16/2022 8: 22 AM EST Job Start Date Occupation Industry Not on file Not on file Not on file Last Filed Vital Signs Vital Sign Reading Time Taken Comments Blood Pressure 132/74 03/17/2024 10:36 AM EDT Pulse 69 03/17/2024 10:36 AM EDT Temperature 36.7 C (98 F) 02/11/2023 3:35 PM EDT Respiratory Rate 18 12/18/2022 7:51 AM EST Oxygen Saturation 97% 02/11/2023 3:35 PM EDT Inhaled Oxygen Concentration - - Weight 83.9 kg (185 lb) 03/17/2024 10:36 AM EDT Height 162.6 cm (5' 4 ) 03/17/2024 10:36 AM EDT Body Mass Index 31.76 03/17/2024 10:36 AM EDT Plan of Treatment Health Maintenance Due Date Last Done Comments Hepatitis C Screening 1951 Depression Screening 1963 BMI Counseling 1969 Preventative Health Evaluation 1969 DTap / Tdap / Td (1 - Tdap) 1970 Colon Cancer Screening (Colonoscopy) 1996 Breast Cancer Screening (Mammogram) 2001 Shingrix-Zoster Vaccine (1 of 2) 2001 Fall Risk Assessment 2016 Pneumococcal Vaccine (1 of 1 - PCV) 2016 Osteoporosis Screening (DEXA Scan) 04/21/2024 04/21/2022, 04/19/2020, 04/01/2018 COVID-19 Vaccine ( - season) 2025 08/04/2023, 08/08/2021, 01/28/2021, Additional history exists Influenza Vaccine (#1) 2025 08/04/2023 RSV Adult > 60+ Yrs or (1 - 1-dose 75+ series) 2026 Hepatitis B Vaccines Aged Out No long er eligible based on patient's age to complete this topic RSV Ped < 20 months Aged Out No longe r eligible based on patient's age to complete this topic Medical Devices Implanted Type Area Groundman/Lineman Device Identifier Shelf Expiration Date Model / Serial / Lot Stimulan Rapid Cure Implanted:Qty: 1 on 10/21/2022 at [facility] Total Joint Right: Knee [id number] 05/08/2025 / / [id number] Cement Simplex P Radiopaque Full Dose Bone 10 Pack - 607963 - [id number] Implanted:Qty: 1 on 04/23/2017 by Marin Soto MD at [facility] Left: Knee [employer] 07/09/2019 6191-1-01 0 / / [id number] Cement Simplex P Radiopaque Full Dose Bone 10 Pack - 641108 - [id number] Implanted:Qty: 1 on 04/23/2017 by Marin Soto MD at [facility] Left: Knee [employer] 07/09/2019 6191-1-01 0 / / [id number] Cement Simplex P Radiopaque Full Dose Bone 10 Pack - 154005 - [id number] Implanted:Qty: 1 on 04/23/2017 by Marin Soto MD at [facility] Left: Knee [employer] 07/09/2019 6191-1-01 0 / / [id number] Peg Triathlon Modular Fix Distal Femur Knee - 845923 - [id number] Implanted:Qty: 1 on 04/23/2017 by Marin Soto MD at [facility] Left: Knee [employer] 01/30/2022 5575-X-00 0 / / [id number] Component Triathlon 9mm 29mm Asymmetric X3 Ptlar Knee - 935462 - [id number] Implanted:Qty: 1 on 04/23/2017 by Marin Soto MD at [facility] Left: Knee [employer] 08/21/2021 5551-G-29 9 / / [id number] Component Triathlon 4 Cemented Posterior Stabilized Femoral - 241780 - [id number] Implanted:Qty: 1 on 04/23/2017 by Marin Soto MD at [facility] Left: Knee [employer] 04/02/2022 5515-F-40 1 / / [id number] Baseplate Triathlon 4 Primary Cemented Tibial Knee - 402778 - [id number] Implanted:Qty: 1 on 04/23/2017 by Marin Soto MD at [facility] Left: Knee [employer] 02/12/2022 5520-B-40 0 / / [id number] Insert Triathlon 4 11mm Posterior Stabilized Bearing X3 - 731330 - [id number] Implanted:Qty: 1 on 04/23/2017 by Marin Soto MD at [facility] Left: Knee [employer] 06/08/2020 5532-G-41 1 / / [id number] Cement Bone Surg Simplex Radiopq Stry-Howm 6459-8-233-114 092 - [id number] Implanted:Qty: 1 on 10/21/2022 at [facility] Right: Knee [employer] [id number] 10/08/2023 6190-11-09 0 / / [id number] Cement Bone Surg Simplex Radiopq Stry-Howm 6835-5-539-114 092 - [id number] Implanted:Qty: 1 on 10/21/2022 at [facility] Right: Knee [employer] [id number] 10/08/2023 6190-11-09 0 / / [id number] Cement Bone Surg Simplex Radiopq Stry-Howm 2317-3-738-114 092 - [id number] Implanted:Qty: 1 on 10/21/2022 at [facility] Right: Knee [employer] [id number] 10/08/2023 6190-11-09 0 / / [id number] Cement Bone Surg Simplex Radiopq Stry-Howm 0708-4-164-114 092 - [id number] Implanted:Qty: 1 on 10/21/2022 at [facility] Right: Knee [employer] [id number] 10/08/2023 6190-11-09 0 / / [id number] Cement Bone Surg Simplex Radiopq Stry-Howm 1634-8-051-114 092 - [id number] Implanted:Qty: 1 on 10/21/2022 at [facility] Right: Knee [employer] [id number] 10/08/2023 6190-11-09 0 / / [id number] Cement Bone Surg Simplex Radiopq Stry-Howm 0853-6-755-114 092 - [id number] Implanted:Qty: 1 on 12/16/2022 by Inder Cordero MD at [facility] Right: Knee [employer] [id number] 04/08/2025 6190-11-09 0 / / [id number] Cement Bone Surg Simplex Radiopq Stry-Howm 1575-2-802-114 092 - [id number] Implanted:Qty: 1 on 12/16/2022 by Inder Cordero MD at [facility] Right: Knee [employer] [id number] 04/08/2025 6190-11-09 0 / / [id number] Cement Bone Surg Simplex Radiopq Stry-Howm 5371-6-643-114 092 - [id number] Implanted:Qty: 1 on 12/16/2022 by Inder Cordero MD at [facility] Right: Knee [employer] [id number] 04/08/2025 6190-11-09 0 / / [id number] Knee Fem Ts Sz4 Rt Stry-Howm 9788-J-618-536 008 - [id number] Implanted:Qty: 1 on 12/16/2022 by Inder Cordero MD at [facility] Right: Knee [employer] [id number] 07/28/2026 5512-F-40 2 / / [id number] Knee Fem Dist Aug Sz4 10mm Rt Stry-Howm 1512-C-583-550 809 - [id number] Implanted:Qty: 1 on 12/16/2022 by Inder Cordero MD at [facility] Right: Knee [employer] [id number] 09/23/2025 5541-A-40 2 / / [id number] Knee Aug Fem Dist Rt 5mm Sz4 Stry-Howm 2199-D-749-534 021 - [id number] Implanted:Qty: 1 on 12/16/2022 by Inder Cordero MD at [facility] Right: Knee [employer] [id number] 04/07/2023 5540-A-40 2 / / [id number] Knee Aug Fem Post 5mm Sz4 Stry-Howm 1973-X-544-534 020 - [id number] Implanted:Qty: 1 on 12/16/2022 by Inder Cordero MD at [facility] Right: Knee [employer] [id number] 06/03/2026 5543-A-40 0 / / [id number] Knee Aug Fem Post 5mm Sz4 Stry-Howm 7001-F-907-534 020 - [id number] Implanted:Qty: 1 on 12/16/2022 by Inder Cordero MD at [facility] Right: Knee [employer] [id number] 05/20/2026 5543-A-40 0 / / [id number] Knee Stem Cmnt Triathln 31t717 Stry-Howm 2212-A-121-200 861 - [id number] Implanted:Qty: 1 on 12/16/2022 by Inder Cordero MD at [facility] Right: Knee [employer] [id number] 06/26/2024 5565-S-01 7 / / [id number] Knee Sys Total Ofst 2mm Stry-Howm 4716-M-781-565 395 - [id number] Implanted:Qty: 1 on 12/16/2022 by Inder Cordero MD at [facility] Right: Knee [employer] [id number] 03/26/2024 5570-S-02 0 / / [id number] Knee Adapt Stab Offset 4mm Stry-Howm 5324-N-106-535 890 - [id number] Implanted:Qty: 1 on 12/16/2022 by Inder Cordero MD at [facility] Right: Knee [employer] [id number] 10/21/2025 5570-S-04 0 / / [id number] Knee Tib Baseplate Sz 4 Rt-Lt Stry-Howm 1753-Z-702-545 913 - [id number] Implanted:Qty: 1 on 12/16/2022 by Inder Cordero MD at [facility] Right: Knee [employer] [id number] 04/03/2027 5521-B-40 0 / / [id number] Knee Tib Aug Rm Ll Sz4 10mm Stry-Howm 6205-O-643-549 114 - [id number] Implanted:Qty: 1 on 12/16/2022 by Inder Cordero MD at [facility] Right: Knee [employer] [id number] 12/04/2025 5546-A-40 2 / / [id number] Knee Aug L Rl Sz4 10mm Stry-Relevant e-solutionm 6681-U-365-646 121 - [id number] Implanted:Qty: 1 on 12/16/2022 by Inder Cordero MD at [facility] Right: Knee [employer] [id number] 02/05/2026 5546-A-40 1 / / [id number] Knee Stem Fluted 13mm Stry-Howm 6901-N-563-550 031 - [id number] Implanted:Qty: 1 on 12/16/2022 by Inder Cordero MD at [facility] Right: Knee [employer] [id number] 04/21/2026 5565-S-01 3 / / [id number] Description:[id number] Knee Insrt Tib Ts+ X3 #4 11mm Stry-Howm 4763-T-758-648 854 - [id number] Implanted:Qty: 1 on 12/16/2022 by Inder Cordero MD at [facility] Right: Knee [employer] [id number] 09/26/2026 5537-G-41 1 / / [id number] Explanted Type Area Groundman/Lineman Device Identifier Shelf Expiration Date Model / Serial / Lot Cement Bone Surg Simplex Radiopq Stry-Howm 4169-5-745-114 092 - [id number] Implanted:Qty: 1 on 06/26/2022 by Marin Soto MD at [facility] Explanted:Qty: 1 on 10/21/2022 at [facility] Right: Knee [employer] 10/08/2023 6191-1-010 / / Knee Fem Ps Cmnt #3 R Stry-Howm 8438-Q-187-325 692 - [id number] Implanted:Qty: 1 on 06/26/2022 by Marin Soto MD at [facility] Explanted:Qty: 1 on 10/21/2022 at [facility] Right: Knee [employer] [id number] 08/22/2026 5515-F-302 / / [id number] Knee Baseplt Tib Cmnt Sz4 Stry-How 5246-L-548-189 190 - [id number] Implanted:Qty: 1 on 06/26/2022 by Marin Soto MD at [facility] Explanted:Qty: 1 on 10/21/2022 at [facility] Right: Knee [employer] [id number] 01/31/2027 5520-B-400 / / [id number] Peg Fix Femoral Distal Stry-Howm 0214-L-050-547 704 - [id number] Implanted:Qty: 1 on 06/26/2022 by Marin Soto MD at [facility] Explanted:Qty: 1 on 10/21/2022 at [facility] Right: Knee [employer] [id number] 05/29/2027 5575-X-000 / / [id number] Knee Tib Insrt Ps-X3 1a9b22fp Stry-Howm 0350-K-841-534 750 - [id number] Implanted:Qty: 1 on 06/26/2022 by Marin Soto MD at [facility] Explanted:Qty: 1 on 10/21/2022 at [facility] Right: Knee [employer] [id number] 03/27/2026 5532-G-413 / / [id number] Knee Pat Symmetric X3 29x8mm Stry-Howm 7886-G-076-287 334 - [id number] Implanted:Qty: 1 on 06/26/2022 by Marin Soto MD at [facility] Explanted:Qty: 1 on 10/21/2022 at [facility] Right: Knee [employer] [id number] 06/17/2025 5550-G-298 / / [id number] Cement Bone Surg Simplex Radiopq Stry-How 4998-3-762-114 092 - [id number] Implanted:Qty: 1 on 06/26/2022 by Marin Soto MD at [facility] Explanted:Qty: 1 on 10/21/2022 at [facility] Right: Knee [employer] 10/08/2023 6191-1-010 / / Advance Directives For more information, please contact: [phone] Documents on File Type Date Recorded Patient Jai Alai Player Expl anation Advance Directive and Living Will 12/19/2022 12:38 PM Advance Directive and Living Will 08/04/2017 9:04 AM Power of Smoking Tobacco Packer Hand 10/15/2022 HEALTH CAR E PROXY Latest Code Status on File Code Status Date Activated Date Inactivated Comments Full Code 12/16/2022 2:48 PM 12/18/2022 8:23 PM This co de status was ascertained in the following way: discussion with patient . Code Status History Code Status Date Activated Date Inactivated Comments Full Code 12/16/2022 8:41 AM 12/16/2022 2:48 PM This co de status was ascertained in the following way: discussion with patient . Full Code 10/21/2022 3:20 PM 10/24/2022 11:28 PM Th is code status was ascertained in the following way: per living will or healthcare instructions . Full Code 10/21/2022 8:04 AM 10/21/2022 3:20 PM Thi s code status was ascertained in the following way: discussion with patient . Full Code 06/26/2022 12:16 PM 06/27/2022 8:04 PM This code status was ascertained in the following way: discussion with patient . Care Teams Crutch Maker Relationship Specialty Start Date End Date Fernie Ribeiro MD [address] [place] [id number] PCP - General Internal Medicine 12/11/22
--- OUTSIDE RECORDS SUMMARY | 2025-09-29 08:37 | XMS_ITS ---
Author Name [facility] Organization Unknown History of Medication Use Medication Directions Dispensed Refills Start Date End Date Stat amoxicillin (AMOXIL) 500 MG capsule Take 4 pills one hour before procedure 03/17/2024 active amoxicillin (AMOXIL) 500 MG capsule Take 4 pills one hour before procedure 03/17/2024 active amoxicillin (AMOXIL) 500 mg capsule Take 4 tablets one hour before dental procedure 07/30/2023 active amoxicillin (AMOXIL) 500 mg capsule Take 4 tablets one hour before dental procedure 07/30/2023 active amoxicillin (AMOXIL) 500 MG capsule Take 4 capsules (2,000 mg total) by mouth once as needed for up to 1 dose. Take 1 hour prior to dental procedures. 07/30/2023 active amoxicillin (AMOXIL) 500 MG capsule Take 4 capsules (2,000 mg total) by mouth once as needed for up to 1 dose. Take 1 hour prior to dental procedures. 07/30/2023 active nystatin (MYCOSTATIN) 100,000 unit/mL suspension Take 5 mL (500,000 Units total) by mouth 3 (three) times a day. 01/28/2023 active nystatin (MYCOSTATIN) 100,000 unit/mL suspension Take 5 mL (500,000 Units total) by mouth 3 (three) times a day. 01/28/2023 active nystatin (MYCOSTATIN) [id number] UNIT/ML suspension Take 5 mL (500,000 Units total) by mouth 3 (three) times a day. 01/28/2023 active nystatin (MYCOSTATIN) [id number] UNIT/ML suspension Take 5 mL (500,000 Units total) by mouth 3 (three) times a day. 01/28/2023 active methocarbamol (ROBAXIN) 750 MG tablet Take 1 tablet (750 mg total) by mouth every 6 (six) hours as needed (spasm). 01/14/2023 active methocarbamol (ROBAXIN) 750 MG tablet Take 1 tablet (750 mg total) by mouth every 6 (six) hours as needed (spasm). 01/14/2023 active methocarbamoL (ROBAXIN) 750 mg tablet Take 1 tablet (750 mg total) by mouth every 6 (six) hours as needed (spasm). 01/14/2023 active methocarbamoL (ROBAXIN) 750 mg tablet Take 1 tablet (750 mg total) by mouth every 6 (six) hours as needed (spasm). 01/14/2023 active ondansetron (Zofran) 4 MG tablet Take 1 tablet (4 mg total) by mouth daily as needed for nausea. 01/14/2023 active ondansetron (Zofran) 4 MG tablet Take 1 tablet (4 mg total) by mouth daily as needed for nausea. 01/14/2023 active ondansetron (ZOFRAN) 4 mg tablet Take 1 tablet (4 mg total) by mouth daily as needed for nausea. 01/14/2023 active ondansetron (ZOFRAN) 4 mg tablet Take 1 tablet (4 mg total) by mouth daily as needed for nausea. 01/14/2023 active meloxicam (MOBIC) 15 mg tablet Take 1 tablet (15 mg total) by mouth 1 (one) time each day. 01/09/2023 active meloxicam (MOBIC) 15 mg tablet Take 1 tablet (15 mg total) by mouth 1 (one) time each day. 01/09/2023 active meloxicam (MOBIC) 15 MG tablet Take 1 tablet (15 mg total) by mouth daily. 01/09/2023 active meloxicam (MOBIC) 15 MG tablet Take 1 tablet (15 mg total) by mouth daily. 01/09/2023 active acetaminophen (TYLENOL EXTRA STRENGTH) 500 MG tablet Take 2 tablets (1,000 mg total) by mouth every 8 (eight) hours. 12/18/2022 active acetaminophen (TYLENOL EXTRA STRENGTH) 500 MG tablet Take 2 tablets (1,000 mg total) by mouth every 8 (eight) hours. 12/18/2022 active acetaminophen (TYLENOL) 500 mg tablet Take 2 tablets (1,000 mg total) by mouth every 8 hours. 12/18/2022 active acetaminophen (TYLENOL) 500 mg tablet Take 2 tablets (1,000 mg total) by mouth every 8 hours. 12/18/2022 active aspirin 81 mg EC tablet Take 1 tablet (81 mg total) by mouth 2 (two) times a day after meals. 12/18/2022 active aspirin 81 mg EC tablet Take 1 tablet (81 mg total) by mouth 2 (two) times a day after meals. 12/18/2022 active aspirin EC 81 MG EC tablet Take 1 tablet (81 mg total) by mouth 2 (two) times a day after meals. 12/18/2022 active aspirin EC 81 MG EC tablet Take 1 tablet (81 mg total) by mouth 2 (two) times a day after meals. 12/18/2022 active oxyCODONE (ROXICODONE) 5 mg immediate release tablet Take 1 tablet (5 mg total) by mouth every 4 (four) hours as needed. 12/18/2022 active oxyCODONE (ROXICODONE) 5 mg immediate release tablet Take 1 tablet (5 mg total) by mouth every 4 (four) hours as needed. 12/18/2022 active oxyCODONE (ROXICODONE) 5 MG immediate release tablet Take 1 tablet (5 mg total) by mouth every 4 (four) hours as needed. 12/18/2022 active oxyCODONE (ROXICODONE) 5 MG immediate release tablet Take 1 tablet (5 mg total) by mouth every 4 (four) hours as needed. 12/18/2022 active senna-docusate (PERICOLACE) 8.6-50 MG Take 1 tablet by mouth 2 (two) times a day. 12/18/2022 active senna-docusate (PERICOLACE) 8.6-50 MG Take 1 tablet by mouth 2 (two) times a day. 12/18/2022 active senna-docusate (PERICOLACE) 8.6-50 mg per tablet Take 1 tablet by mouth 2 (two) times a day. 12/18/2022 active senna-docusate (PERICOLACE) 8.6-50 mg per tablet Take 1 tablet by mouth 2 (two) times a day. 12/18/2022 active losartan (COZAAR) 100 mg tablet Take 1 tablet (100 mg total) by mouth every evening. 10/17/2021 active losartan (COZAAR) 100 mg tablet Take 1 tablet (100 mg total) by mouth every evening. 10/17/2021 active losartan (COZAAR) 100 MG tablet Take 1 tablet (100 mg total) by mouth every evening. 10/17/2021 active losartan (COZAAR) 100 MG tablet Take 1 tablet (100 mg total) by mouth every evening. 10/17/2021 active amLODIPine (NORVASC) 5 mg tablet Take 1.5 tablets (7.5 mg total) by mouth 1 (one) time each day. active amLODIPine (NORVASC) 5 mg tablet Take 1.5 tablets (7.5 mg total) by mouth 1 (one) time each day. active amLODIPine (NORVASC) tablet 5 mg Take 1.5 tablets (7.5 mg total) by mouth daily. active amLODIPine (NORVASC) tablet 5 mg Take 1.5 tablets (7.5 mg total) by mouth daily. active atorvastatin (LIPITOR) 10 mg tablet Take 1 tablet (10 mg total) by mouth every evening. active atorvastatin (LIPITOR) 10 mg tablet Take 1 tablet (10 mg total) by mouth every evening. active atorvastatin (LIPITOR) tablet 10 mg Take 1 tablet (10 mg total) by mouth every evening. active atorvastatin (LIPITOR) tablet 10 mg Take 1 tablet (10 mg total) by mouth every evening. active fluocinolone (VANOS) 0.01 % cream Apply 1 application topically every 3 (three) days. active fluocinolone (VANOS) 0.01 % cream Apply 1 application topically every 3 (three) days. active fluocinolone 0.01 % cream Apply 1 application topically every 3 (three) days. active fluocinolone 0.01 % cream Apply 1 application topically every 3 (three) days. active hydroCHLOROthiazide (HYDRODIURIL) 25 mg tablet Take 1 tablet (25 mg total) by mouth 1 (one) time each day. active hydroCHLOROthiazide (HYDRODIURIL) 25 mg tablet Take 1 tablet (25 mg total) by mouth 1 (one) time each day. active hydrochlorothiazide (HYDRODIURIL) tablet 25 mg Take 1 tablet (25 mg total) by mouth daily. active hydrochlorothiazide (HYDRODIURIL) tablet 25 mg Take 1 tablet (25 mg total) by mouth daily. active MAGNESIUM ORAL Take 1 tablet by mouth every evening. active MAGNESIUM ORAL Take 1 tablet by mouth every evening. active MAGNESIUM PO Take 1 tablet by mouth every evening. active MAGNESIUM PO Take 1 tablet by mouth every evening. active Multiple Vitamin (MULTI VITAMIN DAILY PO) Take by mouth every evening. active Multiple Vitamin (MULTI VITAMIN DAILY PO) Take by mouth every evening. active psyllium (Daily Fiber, psyllium-aspart,) 3.4 gram packet Take 1 packet by mouth 1 (one) time each day. active psyllium (Daily Fiber, psyllium-aspart,) 3.4 gram packet Take 1 packet by mouth 1 (one) time each day. active psyllium (METAMUCIL) 58.6 % packet Take 1 packet by mouth daily. active psyllium (METAMUCIL) 58.6 % packet Take 1 packet by mouth daily. active Allergies Allergen Reaction Severity Comment Documented Date Source Statu s SULFA (SULFONAMIDE ANTIBIOTICS) RASH 06/17/2017 [facility] active SULFA ANTIBIOTICS RASH 06/17/2017 [facility] a ctive Problems Problem Status Onset Date Problem Type Date of Resolution Source History of total bilateral knee replacement active 2022-09-29 [facility]Act [facility] Status post revision of total knee replacement, right active En[facility]DiagnosisAct [facility] Visit for wound check active 2022-09-18 ProblemAct [facility] Status post total knee replacement, left active EncounterDiagnosisAct [facility] Encounter for postoperative wound check active 2022-08-05 ProblemAct [facility] Obesity (BMI 30-39.9) active 2017-04-08 ProblemAct [facility] Acute pain of right knee active 2022-09-29 ProblemAct [facility] Postmenopausal active EncounterDiagnosisAct [facility] Prediabetes active 2017-04-08 ProblemAct [facility] Prosthetic joint infection, subsequent encounter active 2022-10-21 ProblemAct [facility] H Immunizations Vaccine Date Source Lot Number Status [employer] SARS-CoV-2 COVID-19, mRNA, LNP-S, preservative free 08/08/2021 [facility] [id number] completed [employer] SARS-CoV-2 COVID-19, mRNA, LNP-S, preservative free 01/28/2021 [facility] [id number] completed [employer] SARS-CoV-2 COVID-19, mRNA, LNP-S, preservative free 01/03/2021 [facility] completed Encounters Encounter Type Encounter Reason Primary Diagnosis Location Date Ambulatory Asymptomatic menopausal state Asymptomatic menopausal state [facility] 06/28/2025 Ambulatory History of total bilateral knee replacement Infection and inflammatory reaction due to unspecified internal joint prosthesis, subsequent encounter [facility] 03/14/2025 Ambulatory Infection and inflammatory reaction due to unspecified internal joint prosthesis, subsequent encounter Infection and inflammatory reaction due to unspecified internal joint prosthesis, subsequent encounter [facility] 03/14/2025 Ambulatory Presence of right artificial knee joint Presence of right artificial knee joint [facility] 03/17/2024 Ambulatory Pain in left hip Pain in left hip [facility] 07/30/2023 Ambulatory Presence of right artificial knee joint Presence of right artificial knee joint [facility] 07/30/2023 Care Team Organization Name Specialty Phone Email Start Date End Da te [facility] 09/27/2025 [facility] 06/28/2025 [facility] 03/14/2025 [facility] 03/14/2025 [facility] 07/30/2023
== END 2025-09-29 08:34 | disposition home or self-care (01) ==
LOC: HO.MAMMO 08:33
PROVIDERS: PCP Internal Medicine; Visit Provider Internal Medicine
DX: Z12.31 Encounter for screening mammogram for malignant neoplasm of breast (principal)
CPT/HCPCS: 77063; 77067

== ENCOUNTER → 2025-09-29 09:00 | Outpatient (BNV) | payer MEDICARE, SELFPAY | PROVIDERS: PCP Internal Medicine; Visit Provider Internal Medicine | DX: Z12.31 Encounter for screening mammogram for malignant neoplasm of breast (principal) | CPT/HCPCS: 77063; 77067 ==

== ENCOUNTER 2025-10-10 08:50 | Outpatient (AMB) | payer MEDICARE, SELFPAY ==
--- NOTE | 2025-10-10 08:52 | A.OFFVIS_ITS ---
Vital Signs 10/10/25 09:06 Height 5 ft 3.5 in Weight 167 lb BMI 29.1 BP 124/59 L Blood Pressure Location Lt brachial Position Sitting Pulse 70 Intake Visit Reasons: Yearly breast exam Intake Note: Patient is seen in office for yearly breast exam. Pt c/o: denies any changes or concerns mm:09/29/25 Dance Coach Required: No Accompanied by: Self / Same As Patient Allergies sulfamethoxazole (From BACTRIM) Allergy (Unknown, Unverified 10/10/25 09:06) RASH,COUGH trimethoprim (From BACTRIM) Allergy (Unknown, Unverified 10/10/25 09:06) RASH,COUGH SULFA Allergy (Unknown, Uncoded 10/10/25 09:06) hives Medication List - Last Reconciled 10/10/25 by Blayne Gudino MD amlodipine mg PO aspirin (Adult Low Dose Aspirin) 81 mg PO DAILY atorvastatin 20 mg PO DAILY cholecalciferol (vitamin D3) 50 mcg PO DAILY hydrochlorothiazide 12.5 mg PO DAILY losartan 50 mg PO DAILY magnesium 250 mg PO DAILY HPI Comments Details: 75 year old female patient of Kayli Connolly and previous patient of Dr. Gutierrez presenting for a follow up breast examination. She was diagnosed with a left breast atypical ductal hyperplasia in the 1 o'clock position in 2016 and subsequently underwent left needle localization biopsy which confirmed atypical ductal hyperplasia. Patient had a 40% lifetime risk of breast cancer. She was placed in the high risk breast cancer protocol for which twice yearly breast examinations, yearly mammograms followed in 6 months with MRI of the breast was recommended. Since her last visit, she denies any new breast symptoms or new palpable lumps on self examination. breast MRI performed on 03/29/2024 revealed no MR specific evidence of malignancy (BI-RADS 2 bilaterally). Bilateral mammogram performed on 09/29/2025 revealed no mammographic evidence of malignancy (BI-RADS 2). Reports her brother from cardiac disease while playing basketball. Her from metastatic prostate cancer earlier this year. She would like to hold off on any further breast MRIs. [facility] Surgical History History of total right knee replacement (TKR) (06/25/22) History of total right knee replacement History of cataract surgery (07/09/20) History of lumpectomy of left breast (06/22/17) History of left breast biopsy History of left knee replacement (2017) Family History Maternal Grandfather Leukemia, Onset Age: 85 Paternal Aunt Breast cancer, Onset Age: 65 Maternal Uncle Lung cancer, Onset Age: 54 Family/Other Breast cancer Social History Alcohol intake: current Alcohol intake frequency: holidays/special occasions only Patient Tobacco Use Status: Never used Tobacco Review of Systems Const All systems reviewed & are unremarkable except as noted in HPI and below Denies anorexia, Denies chills, Denies fever(s) and Denies night sweats Card Denies chest pain, Denies rapid heart rate, Denies irregular heart rhythm and Denies dyspnea Resp Denies cough, Denies dyspnea and Denies stridor GI Denies bloating, Denies constipation, Denies GI cramping and Denies diarrhea Denies nipple discharge Musc Details: Right knee replacement Reports no additional complaints Skin/Breast Denies breast swelling, Denies breast skin changes, Denies breast pain, Denies breast mass, Denies change in breast shape and Denies nipple discharge Physical Exam Vital Signs: Last Vital Signs Pulse 70 10/10/25 09:06 BP 124/59 L 10/10/25 09:06 BMI result Body Mass Index 29.1 Const General: cooperative, no acute distress and well developed Nutritional Appearance: well nourished Orientation/consciousness: patient oriented x3 Limitations: no limitations Chest Other: Left breast: No skin change, no nipple retraction, no nipple discharge, no palpable mass, no enlarged lymph nodes. Right breast: No skin change, no nipple retraction, no nipple discharge, no palpable mass, no enlarged lymph nodes Resp Effort & Inspection: normal respiratory effort, no cough and no respiratory distress GI Inspection: Yes normal to inspection Skin Other: Warm, dry, no rashes Neuro General: patient oriented x3 Extrem General: Yes no clubbing, cyanosis or edema Assessment & Plan Assessment & Plan (1) Atypical ductal hyperplasia of left breast: Code(s): N60.92 - Unspecified benign mammary dysplasia of left breast Category: Medical Plan: Patient returns for follow-up yearly breast examination following excision of an atypical ductal hyperplasia of the left breast. She denies any new breast symptoms on either side. Her most recent mammogram of 09/29/2025 revealed no mammographic evidence of malignancy (BI-RADS 2). Breast MRI of 03/29/2024 revealed no MR specific evidence of malignancy ( BI-RADS 2 bilaterally ). She will hold off on any further breast MRIs. Examination today revealed no suspicious findings in either side. She should continue self examination and return in 1 year for follow-up examination. She is welcome to call for any concerns. Coding Level of Care Code Est Pt Level 3 (69691) Complex visit Add On G2211 Diagnoses Atypical ductal hyperplasia of left breast N60.92
--- OUTSIDE RECORDS SUMMARY | 2025-10-10 09:00 | XMS_ITS | Clinical Summary ---
Author Organization [facility] ter Address [address] [place] [address] Phone Care Team Providers Care Information Security Consultant Name Role Phone Fernie Ribeiro MD Primary Care Provider [phone] Allergies Active Allergy Reactions Criticality Noted Date [...] Type Department Care Team Description 08/10/2025 Telephone [facility] Cardiology [facility] [address] [place] [address] Del Blackburn MD 07/20/2025 Telephone [facility] Cardiology [facility] [address] [place] [address] Fernie Ribeiro MD from Last 3 Months Immunizations Immunization Administration Dates Next Due [employer] SARS-CoV-2 COVID-19, mRNA, LNP-S, preservative free 08/08/2021,01/28/2021,01/03/2021 Surgical History Surgery Date Site/Laterality Comments GUM SURGERY PROCEDURE:GUM SURGERY COLONOSCOPY PROCEDURE:COLONOSCOPY JOINT REPLACEMENT PROCEDURE:JOINT REPLACEMENT TOTAL KNEE ARTHROPLASTY 04/23/2017 Left PROCEDURE:TOTAL KNEE ARTHROPLASTY;COMMENT:Procedu re: REPLACEMENT TOTAL KNEE; Surgeon: Marin Soto MD; Location: [facility]; Service: Orthopedics; Laterality: Left; BREAST LUMPECTOMY 06/2017 Left PROCEDURE:BREAST LUMPECTOMY CATARACT EXTRACTION W/ INTRAOCULAR LENS IMPLANT 2019 Left PROCEDURE:CATARACT EXTRACTION W/ INTRAOCULAR LENS IMPLANT CATARACT EXTRACTION W/ INTRAOCULAR LENS IMPLANT 2019 Right PROCEDURE:CATARACT EXTRACTION W/ INTRAOCULAR LENS IMPLANT TOTAL KNEE ARTHROPLASTY 06/26/2022 Right PROCEDURE:TOTAL KNEE ARTHROPLASTY;COMMENT:Procedu re: REPLACEMENT TOTAL KNEE; Surgeon: Marin Soto MD; Location: [facility]; Service: Orthopedics; Laterality: Right; REMOVAL PROSTHESIS TOTAL KNE E W/ OR W/O INSERTION SPACER 10/21/2022 Right PROCEDURE:REMOVAL PROSTHESIS TOTAL KNEE W/ OR W/O INSERTION SPACER;COMMENT:Procedure: REMOVE TOTAL KNEE PROSTHESIS; Surgeon: Inder Cordero MD; Location: [facility]; Service: Orthopedic Trauma; Laterality: Right; KNEE ARTHRODESIS 10/21/2022 Right PROCEDURE:KNEE ARTHRODESIS;COMMENT:Procedur e: ARTHRODESIS KNEE; Surgeon: Inder Cordero MD; Location: [facility]); Service: Orthopedic Trauma; Laterality: Right; PERIPHERALLY INSERTED CENTRA L CATHETER INSERTION 10/22/2022 PROCEDURE:PERIPHERALLY INSERTED CENTRAL CATHETER INSERTION KNEE ARTHROPLASTY 12/16/2022 Right PROCEDURE:REVISION TOTAL KNEE ARTHROPLASTY;COMMENT:Procedu re: REVISION TOTAL KNEE; Surgeon: Inder Cordero MD; Location: [facility]); Service: Orthopedics; Laterality: Right; Medical History [...] Relation Name Status Comments Brother (Age 67) MS Father 75 Heart attack Mother Alive Sister [...] AM EDT Office Visit Orthopedic Oncology - [place] [address] [place] [id number] Jase Rivera MD [address] [place], [place] [id number] Health Maintenance Due Date Last Done Comments [...] this topic Medical Devices Implanted Type Area Tube Test Technician Device Identifier Shelf Expiration Date Model / Serial / Lot Stimulan Rapid Cure Implanted:Qty : 1 on 10/21/2022 Joints Right: Knee [id number] 05/08/2025 / / [id number] Cement Bone Surg Simplex Radiopq Stry-Howm 4037-3-183-11 409 Implanted:Qty : 1 on 10/21/2022 Right: Knee [employer] [id number] 10/08/2023 6190-11-09 0 / / [id number] Cement Bone Surg Simplex Radiopq Stry-Howm 2930-6-011-11 409 Implanted:Qty : 1 on 10/21/2022 Right: Knee [employer] [id number] 10/08/2023 6190-11-09 0 / / [id number] Cement Bone Surg Simplex Radiopq Stry-Howm 0642-1-543-11 409 Implanted:Qty : 1 on 10/21/2022 Right: Knee [employer] [id number] 10/08/2023 6190-11-09 0 / / [id number] Cement Bone Surg Simplex Radiopq Stry-Howm 7813-8-980-11 409 Implanted:Qty : 1 on 10/21/2022 Right: Knee [employer] [id number] 10/08/2023 6190-11-09 0 / / [id number] Cement Bone Surg Simplex Radiopq Stry-Howm 6353-4-481-11 409 Implanted:Qty : 1 on 10/21/2022 Right: Knee [employer] [id number] 10/08/2023 6190-11-09 0 / / [id number] Knee Fem Ts Sz4 Rt Stry-Howm 8341-I-713-53 6008 Implanted:Qty : 1 on 12/16/2022 by Inder Cordero MD Right: Knee [employer] [id number] 07/28/2026 5512-F-40 2 / / [id number] Knee Fem Dist Aug Sz4 10mm Rt Stry-Howm 9610-B-419-55 0809 Implanted:Qty : 1 on 12/16/2022 by Inder Cordero MD Right: Knee [employer] [id number] 09/23/2025 5541-A-40 2 / / [id number] Knee Aug Fem Dist Rt 5mm Sz4 Stry-Howm 8013-O-059-53 4021 Implanted:Qty : 1 on 12/16/2022 by Inder Cordero MD Right: Knee [employer] [id number] 04/07/2023 5540-A-40 2 / / [id number] Knee Aug Fem Post 5mm Sz4 Stry-Howm 3770-N-700-53 4020 Implanted:Qty : 1 on 12/16/2022 by Inder Cordero MD Right: Knee [employer] [id number] 06/03/2026 5543-A-40 0 / / [id number] Knee Aug Fem Post 5mm Sz4 Stry-Howm 1508-R-527-53 4020 Implanted:Qty : 1 on 12/16/2022 by Inder Cordero MD Right: Knee [employer] [id number] 05/20/2026 5543-A-40 0 / / [id number] Knee Stem Cmnt Triathln [id number] Stry-How 5791-C-796-20 0861 Implanted:Qty : 1 on 12/16/2022 by Inder Cordero MD Right: Knee [employer] [id number] 06/26/2024 5565-S-01 7 / / [id number] Knee Sys Total Ofst 2mm Stry-How 5524-I-886-56 5395 Implanted:Qty : 1 on 12/16/2022 by Inder Cordero MD Right: Knee [employer] [id number] 03/26/2024 5570-S-02 0 / / [id number] Knee Adapt Stab Offset 4mm Stry-Howm 2292-E-705-53 5890 Implanted:Qty : 1 on 12/16/2022 by Inder Cordero MD Right: Knee [employer] [id number] 10/21/2025 5570-S-04 0 / / [id number] Knee Tib Baseplate Sz 4 Rt-Lt Stry-Howm 7380-V-041-54 5913 Implanted:Qty : 1 on 12/16/2022 by Inder Cordero MD Right: Knee [employer] [id number] 04/03/2027 5521-B-40 0 / / [id number] Knee Tib Aug Rm Ll Sz4 10mm Stry-Howm 8569-F-154-54 9114 Implanted:Qty : 1 on 12/16/2022 by Inder Cordero MD Right: Knee [employer] [id number] 12/04/2025 5546-A-40 2 / / [id number] Knee Aug L Rl Sz4 10mm Stry-Howm 5691-G-443-64 6121 Implanted:Qty : 1 on 12/16/2022 by Inder Cordero MD Right: Knee [employer] [id number] 02/05/2026 5546-A-40 1 / / [id number] Knee Stem Fluted 13mm Stry-How 7782-V-967-55 0031 Implanted:Qty : 1 on 12/16/2022 by Inder Cordero MD Right: Knee [employer] [id number] 04/21/2026 5565-S-01 3 / / [id number] Description:[id number] Knee Insrt Tib Ts+ X3 #4 11mm Stry-Howm 6357-I-187-64 8854 Implanted:Qty : 1 on 12/16/2022 by Inder Cordero MD Right: Knee [employer] [id number] 09/26/2026 5537-G-41 1 / / [id number] Cement Bone Surg Simplex Radiopq Stry-How 1347-8-161-11 4092 Implanted:Qty : 1 on 12/16/2022 by Inder Cordero MD Right: Knee [employer] [id number] 04/08/2025 6190-11-09 0 / / [id number] Cement Bone Surg Simplex Radiopq Stry-How 9197-4-279-11 4092 Implanted:Qty : 1 on 12/16/2022 by Inder Cordero MD Right: Knee [employer] [id number] 04/08/2025 6190-11-09 0 / / [id number] Cement Bone Surg Simplex Radiopq Stry-How 8536-2-775-11 409 Implanted:Qty : 1 on 12/16/2022 by Inder Cordero MD Right: Knee [employer] [id number] 04/08/2025 6190-11-09 0 / / [id number] Procedures Procedure Name Priority Date/Time Associated Diagnosis Comments BD BONE DENSITY DXA AXIAL SKELETON Routine 06/28/2025 11:45 AM EDT Postmenopausal COMPREHENSIVE METABOLIC PANEL Routine 10/28/2024 8:53 AM EST HTN (hypertension) 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 The World Health [...] Signed Date: 06/29/2025 16:51 ET Workstation ID: [id number] Transcribed By: Self Edit Transcribed Date: 06/29/2025 16:50 ET Fernie Ribeiro MD IM DXA PROCEDURES Final Result * Comprehensive metabolic panel (10/28/2024 8:53 AM EST) Sodium 136 133 - 145 mmol/L LAB CHEMISTRY METHOD 10/28/2024 1:16 PM [facility] Potassium 4.0 3.5 - 5.5 mmol/L LAB CHEMISTRY METHOD 10/28/2024 1:16 PM [facility] Chloride 104 96 - 110 mmol/L LAB CHEMISTRY METHOD 10/28/2024 1:16 PM [facility] CO2 26 21 - 32 mmol/L LAB CHEMISTRY METHOD 10/28/2024 1:16 PM [facility] Anion Gap 6 3 - 11 LAB CHEMISTRY METHOD 10/28/2024 1:16 PM [facility] Glucose 96 70 - 100 mg/dL LAB CHEMISTRY METHOD 10/28/2024 1:16 PM [facility] BUN 24 5 - 25 mg/dL LAB CHEMISTRY METHOD 10/28/2024 1:16 PM [facility] Creatinine 0.97 0.50 - 1.10 mg/dL LAB CHEMISTRY METHOD 10/28/2024 1:16 PM [facility] eGFR 62 >=60 mL/min/1. 73m2 LAB CHEMISTRY METHOD 10/28/2024 1:16 PM [facility] Comment:Calculation based on the Chronic Kidney Disease Epidemiology Collaboration (CKD-EPI) equation refit without adjustment for race. BUN/Creatinine Ratio 24.7 LAB CHEMISTRY METHOD 10/28/2024 1:16 PM [facility] Calcium 9.9 8.5 - 10.5 mg/dL LAB CHEMISTRY METHOD 10/28/2024 1:16 PM [facility] AST (SGOT) 10 10 - 42 unit/L LAB CHEMISTRY METHOD 10/28/2024 1:16 PM [facility] ALT (SGPT) 13 10 - 60 unit/L LAB CHEMISTRY METHOD 10/28/2024 1:16 PM [facility] Alkaline Phosphatase 113 42 - 121 unit/L LAB CHEMISTRY METHOD 10/28/2024 1:16 PM [facility] Total Protein 7.4 6.0 - 8.0 g/dL LAB CHEMISTRY METHOD 10/28/2024 1:16 PM [facility] Albumin 4.1 3.2 - 5.0 g/dL LAB CHEMISTRY METHOD 10/28/2024 1:16 PM [facility] Total Bilirubin 0.6 0.0 - 1.4 mg/dL LAB CHEMISTRY METHOD 10/28/2024 1:16 PM [facility] Blood Venous blood specimen / Unknown Venipuncture / Unknown 10/28/2024 8:53 AM EST 10/28/2024 12:30 PM EST Fernie Ribeiro MD LAB BLOOD ORDERABLES Final Resul t [facility] [address] [place] [address], from Last 3 Months or Most Recently Relevant to Health Maintenance Insurance [employer] MEDICARE Advance Directives Documents on File Type Date Recorded Patient Carpenter Inspector Expl anation Health Care Decision (hx) 12/19/2022 AD MEYER DIRECTIVE Health Care Decision (hx) 10/15/2022 [facility] Care Teams Information Security Consultant Relationship Specialty Start Date End Date Fernie Ribeiro MD [address] [place] [address] PCP - General 12/11/22
--- OUTSIDE RECORDS SUMMARY | 2025-10-10 09:01 | XMS_ITS | Clinical Summary ---
Author Organization [facility] Address [address] [place] [address] Care Team Providers Care Sheet Metal Pattern Cutter Name Role Phone Fernie Ribeiro MD Primary Care Provider [phone] Allergies Active Allergy Reactions Criticality Noted Date [...] 30 tablet 1 01/14/2023 Active nystatin (MYCOSTATIN) 881490 UNIT/ML suspension Take 5 mL (500,000 Units [...] Relation Name Status Comments Brother (Age 67) RI Father 75 Heart attack Mother Alive Sister [...] this topic Medical Devices Implanted Type Area Salesperson Burial Plots Device Identifier Shelf Expiration Date Model / Serial / Lot Stimulan Rapid Cure Implanted:Qty: 1 on 10/21/2022 at [facility] and [facility] Total Joint Right: Knee [id number] 05/08/2025 / / [id number] Cement Simplex P Radiopaque Full Dose Bone 10 Pack - 856742 - [id number] Implanted:Qty: 1 on 04/23/2017 by Marin Soto MD at [facility] and [facility] Left: Knee [facility] [employer] [facility] 07/09/2019 6191-1-01 0 / / [id number] Cement Simplex P Radiopaque Full Dose Bone 10 Pack - 687176 - [id number] Implanted:Qty: 1 on 04/23/2017 by Marin Soto MD at [facility] and [facility] Left: Knee [employer] 07/09/2019 6191-1-01 0 / / [id number] Cement Simplex P Radiopaque Full Dose Bone 10 Pack - 335382 - [id number] Implanted:Qty: 1 on 04/23/2017 by Marin Soto MD at [facility] and [facility] Left: Knee [employer] 07/09/2019 6191-1-01 0 / / [id number] Peg Triathlon Modular Fix Distal Femur Knee - 096842 - [id number] Implanted:Qty: 1 on 04/23/2017 by Marin Soto MD at [facility] and [facility] Left: Knee [employer] 01/30/2022 5575-X-00 0 / / [id number] Component Triathlon 9mm 29mm Asymmetric X3 Ptlar Knee - 025790 - [id number] Implanted:Qty: 1 on 04/23/2017 by Marin Soto MD at [facility] and [facility] Left: Knee [employer] 08/21/2021 5551-G-29 9 / / [id number] Component Triathlon 4 Cemented Posterior Stabilized Femoral - 727744 - [id number] Implanted:Qty: 1 on 04/23/2017 by Marin Soto MD at [facility] and [facility] Left: Knee [facility] 04/02/2022 5515-F-40 1 / / [id number] Baseplate Triathlon 4 Primary Cemented Tibial Knee - 685513 - [id number] Implanted:Qty: 1 on 04/23/2017 by Marin Soto MD at [facility] and [facility] Left: Knee [facility] 02/12/2022 5520-B-40 0 / / [id number] Insert Triathlon 4 11mm Posterior Stabilized Bearing X3 - 342857 - [id number] Implanted:Qty: 1 on 04/23/2017 by Marin Soto MD at [facility] and [facility] Left: Knee [facility] 06/08/2020 5532-G-41 1 / / [id number] Cement Bone Surg Simplex Radiopq Stry-Howm 4611-9-304-114 092 - [id number] Implanted:Qty: 1 on 10/21/2022 at [facility] and [facility] Right: Knee [facility] [id number] 10/08/2023 6190-11-09 0 / / [id number] Cement Bone Surg Simplex Radiopq Stry-Howm 7192-0-649-114 092 - [id number] Implanted:Qty: 1 on 10/21/2022 at [facility] and [facility] Right: Knee [employer] [id number] 10/08/2023 6190-11-09 0 / / [id number] Cement Bone Surg Simplex Radiopq Stry-Howm 7905-2-762-114 092 - [id number] Implanted:Qty: 1 on 10/21/2022 at [facility] and [facility] Right: Knee [employer] [id number] 10/08/2023 6190-11-09 0 / / [id number] Cement Bone Surg Simplex Radiopq Stry-Howm 0619-7-310-114 092 - [id number] Implanted:Qty: 1 on 10/21/2022 at [facility] and [facility] Right: Knee [employer] [facility] [id number] 10/08/2023 6190-11-09 0 / / [id number] Cement Bone Surg Simplex Radiopq Stry-Howm 1852-3-554-114 092 - [id number] Implanted:Qty: 1 on 10/21/2022 at [facility] and [facility] Right: Knee [employer] [facility] [id number] 10/08/2023 6190-11-09 0 / / [id number] Cement Bone Surg Simplex Radiopq Stry-Howm 8701-6-163-114 092 - [id number] Implanted:Qty: 1 on 12/16/2022 by Inder Cordero MD at [facility] and [facility] Right: Knee [employer] [id number] 04/08/2025 6190-11-09 0 / / [id number] Cement Bone Surg Simplex Radiopq Stry-Howm 8453-5-140-114 092 - [id number] Implanted:Qty: 1 on 12/16/2022 by Inder Cordero MD at [facility] and [facility] Right: Knee [employer] [id number] 04/08/2025 6190-11-09 0 / / [id number] Cement Bone Surg Simplex Radiopq Stry-Howm 6306-3-972-114 092 - [id number] Implanted:Qty: 1 on 12/16/2022 by Inder Cordero MD at [facility] and Med Right: Knee [employer] [facility] [id number] 04/08/2025 6190-11-09 0 / / [id number] Knee Fem Ts Sz4 Rt Stry-Howm 2657-B-207-536 008 - [id number] Implanted:Qty: 1 on 12/16/2022 by Inder Cordero MD at [facility] and [facility] Right: Knee [employer] [id number] 07/28/2026 5512-F-40 2 / / [id number] Knee Fem Dist Aug Sz4 10mm Rt Stry-Howm 8455-R-726-550 809 - [id number] Implanted:Qty: 1 on 12/16/2022 by Inder Cordero MD at [facility] and Med Right: Knee [employer] [facility] [id number] 09/23/2025 5541-A-40 2 / / [id number] Knee Aug Fem Dist Rt 5mm Sz4 Stry-Howm 8146-N-660-534 021 - [id number] Implanted:Qty: 1 on 12/16/2022 by Inder Cordero MD at [facility] and Med Right: Knee [employer] [id number] 04/07/2023 5540-A-40 2 / / [id number] Knee Aug Fem Post 5mm Sz4 Stry-Howm 2151-B-908-534 020 - [id number] Implanted:Qty: 1 on 12/16/2022 by Inder Cordero MD at [facility] and Med Right: Knee [employer] [id number] 06/03/2026 5543-A-40 0 / / [id number] Knee Aug Fem Post 5mm Sz4 Stry-Howm 9031-Z-555-534 020 - [id number] Implanted:Qty: 1 on 12/16/2022 by Inder Cordero MD at [facility] and Med Right: Knee [employer] [id number] 05/20/2026 5543-A-40 0 / / [id number] Knee Stem Cmnt Triathln 76b051 Stry-Howm 2593-E-412-200 861 - [id number] Implanted:Qty: 1 on 12/16/2022 by Inder Cordero MD at [facility] and Med Right: Knee [employer] [id number] 06/26/2024 5565-S-01 7 / / [id number] Knee Sys Total Ofst 2mm Stry-Howm 5415-X-219-565 395 - [id number] Implanted:Qty: 1 on 12/16/2022 by Inder Cordero MD at [facility] and Med Right: Knee [employer] [facility] [id number] 03/26/2024 5570-S-02 0 / / [id number] Knee Adapt Stab Offset 4mm Stry-Howm 5428-V-790-535 890 - [id number] Implanted:Qty: 1 on 12/16/2022 by Inder Cordero MD at [facility] and [facility] Right: Knee [employer] [id number] 10/21/2025 5570-S-04 0 / / [id number] Knee Tib Baseplate Sz 4 Rt-Lt Stry-Howm 5767-N-898-545 913 - [id number] Implanted:Qty: 1 on 12/16/2022 by Inder Cordero MD at [facility] and [facility] Right: Knee [employer] [id number] 04/03/2027 5521-B-40 0 / / [id number] Knee Tib Aug Rm Ll Sz4 10mm Stry-Howm 0662-E-840-549 114 - [id number] Implanted:Qty: 1 on 12/16/2022 by Inder Cordero MD at [facility] and [facility] Right: Knee [employer] [id number] 12/04/2025 5546-A-40 2 / / [id number] Knee Aug L Rl Sz4 10mm Stry-AudioEyem 2291-P-407-646 121 - [id number] Implanted:Qty: 1 on 12/16/2022 by Inder Cordero MD at [facility] and [facility] Right: Knee [employer] [facility] [id number] 02/05/2026 5546-A-40 1 / / [id number] Knee Stem Fluted 13mm Stry-Howm 8378-Z-402-550 031 - [id number] Implanted:Qty: 1 on 12/16/2022 by Inder Cordero MD at [facility] and [facility] Right: Knee [employer] [id number] 04/21/2026 5565-S-01 3 / / [id number] Description:[id number] Knee Insrt Tib Ts+ X3 #4 11mm Stry-Howm 1583-V-348-648 854 - [id number] Implanted:Qty: 1 on 12/16/2022 by Inder Cordero MD at [facility] and [facility] Right: Knee [employer] [facility] [id number] 09/26/2026 5537-G-41 1 / / [id number] Explanted Type Area Salesperson Burial Plots Device Identifier Shelf Expiration Date Model / Serial / Lot Cement Bone Surg Simplex Radiopq Stry-Howm 5332-8-144-114 092 - [id number] Implanted:Qty: 1 on 06/26/2022 by Marin Soto MD at [facility] and Med Explanted:Qty: 1 on 10/21/2022 at [facility] and [facility] Right: Knee [employer] 10/08/2023 6191-1-010 / / Knee Fem Ps Cmnt #3 R Stry-Howm 5376-O-497-325 692 - [id number] Implanted:Qty: 1 on 06/26/2022 by Marin Soto MD at [facility] and Med Explanted:Qty: 1 on 10/21/2022 at [facility] and [facility] Right: Knee [employer] [id number] 08/22/2026 5515-F-302 / / [id number] Knee Baseplt Tib Cmnt Sz4 Stry-How 9216-G-788-189 190 - [id number] Implanted:Qty: 1 on 06/26/2022 by Marin Soto MD at [facility] and Med Explanted:Qty: 1 on 10/21/2022 at [facility] and [facility] Right: Knee [employer] [facility] [id number] 01/31/2027 5520-B-400 / / [id number] Peg Fix Femoral Distal Stry-Howm 9382-L-283-547 704 - [id number] Implanted:Qty: 1 on 06/26/2022 by Marin Soto MD at [facility] and Med Explanted:Qty: 1 on 10/21/2022 at [facility] and [facility] Right: Knee [employer] [id number] 05/29/2027 5575-X-000 / / [id number] Knee Tib Insrt Ps-X3 6k9p42yh Stry-Howm 5659-C-886-534 750 - [id number] Implanted:Qty: 1 on 06/26/2022 by Marin Soto MD at [facility] and Med Explanted:Qty: 1 on 10/21/2022 at [facility] and [facility] Right: Knee [employer] [id number] 03/27/2026 5532-G-413 / / [id number] Knee Pat Symmetric X3 29x8mm Stry-Howm 3896-Y-202-287 334 - [id number] Implanted:Qty: 1 on 06/26/2022 by Marin Soto MD at [facility] and Med Explanted:Qty: 1 on 10/21/2022 at [facility] and Med Right: Knee [employer] [facility] [id number] 06/17/2025 5550-G-298 / / [id number] Cement Bone Surg Simplex Radiopq Stry-How 9738-0-833-114 092 - [id number] Implanted:Qty: 1 on 06/26/2022 by Marin Soto MD at [facility] and Med Explanted:Qty: 1 on 10/21/2022 at [facility] and [facility] Right: Knee [employer] [facility] 10/08/2023 6191-1-010 / / Advance Directives For more information, please contact: [phone] Documents on File Type Date Recorded Patient Global Marketing Coordinator Expl anation Advance Directive and Living Will 12/19/2022 12:38 PM Advance Directive and Living Will 08/04/2017 9:04 AM Power of Final Inspector Balance Wheel 10/15/2022 HEALTH CAR E PROXY Latest Code [...] way: discussion with patient . Care Teams Sheet Metal Pattern Cutter Relationship Specialty Start Date End Date Fernie Ribeiro MD [address] [place] [address] PCP - General Internal Medicine 12/11/22
[2025-10-10 09:06] VITALS: BP 124/59; PULSE 70; BMI 29.1
== END 2025-10-10 09:20 | disposition home or self-care (01) ==
LOC: HO.HGS 08:50
PROVIDERS: PCP Internal Medicine; Visit Provider Surgery
DX: N60.92 Unspecified benign mammary dysplasia of left breast (principal)
CPT/HCPCS: 99213; G2211

== ENCOUNTER → 2025-10-10 08:50 | Outpatient (BNVA) | payer MEDICARE, SELFPAY | PROVIDERS: PCP Internal Medicine; Visit Provider Surgery | DX: Z91.89 Other specified personal risk factors, not elsewhere classified (principal); N60.92 Unspecified benign mammary dysplasia of left breast; Z80.3 Family history of malignant neoplasm of breast; Z80.1 Family history of malignant neoplasm of trachea, bronchus and lung; Z80.6 Family history of leukemia | CPT/HCPCS: 99212 ==